=== PATIENT | female | born 1950 | race Caucasian/White ===

== ENCOUNTER 2025-01-16 11:28 | Inpatient (IN) | payer MEDICARE, SELFPAY ==
[2025-01-16] VITALS (8 sets, daily range): BP systolic 106–128; BP diastolic 52–83; PULSE 68–147; RESP 11–22; TEMP 36.4–36.8; O2SAT 95–98; BMI 28.5
--- NOTE | 2025-01-16 | ECG_ITS ---
Test Reason : SINUS TACH Blood Pressure : */* mmHG Vent. Rate : 81 BPM Atrial Rate : 81 BPM P-R Int : 178 ms QRS Dur : 142 ms QT Int : 438 ms P-R-T Axes : 71 27 162 degrees QTcB Int : 508 ms Normal sinus rhythm Left bundle branch block Abnormal ECG When compared with ECG of 16-Jan-2025 11:42, Sinus rhythm has replaced Wide QRS tachycardia Vent. rate has decreased by 65 bpm Referred By: Chad Casas Electronically Signed By: JAKOB OLGUIN
--- NOTE | ~2025-01-16 | XR_ITS ---
CLINICAL HISTORY: Palpitation 1 view chest x-ray Comparison: None Findings: Mild diffuse reticulonodular pulmonary opacity. Normal size heart. No acute fracture. IMPRESSION: Mild edema versus atypical pneumonia. This document has been electronically signed by: Mireya Roger MD on 01/16/2025 15:47:21
--- NOTE | 2025-01-16 11:34 | ED_ITS ---
HPI - General Adult General Chief complaint: Arrhythmia/Palpitations Stated complaint: High HR ; 143 @ approx 1030am Time Seen by Provider: 01/16/25 11:59 Related Data Allergies Allergy/AdvReac Type Severity Reaction Status Date / Time No Known Allergies Allergy Verified 01/16/25 11:39 [facility] Past Medical History Medical History (Updated 01/16/25 @ 15:24 by Chad Casas MD) Hyperlipidemia, unspecified Essential hypertension Diabetes mellitus Family History Family History (Updated 01/16/25 @ 14:25 by Daniel Tinoco MD) Father Heart valve replaced Social History Social History Smoked in Last 30 Days: No Use of substances other than those prescribed or required for medical reasons: No Advance Directives: No Advance Directives Information Provided: No Do you have a plan to hurt others: No Plan Physical Exam ED Vital Signs: Vital Signs - 24 hr 01/16/25 11:34 01/16/25 12:03 01/16/25 12:23 Temperature 97.9 F Pulse Rate 147 H 145 H 81 Respiratory Rate 18 22 H Blood Pressure 106/67 128/83 113/67 Pulse Oximetry 97 98 Oxygen Delivery Method Room Air Room Air 01/16/25 15:11 01/16/25 15:15 01/16/25 18:42 Temperature 98.2 F Pulse Rate 74 80 68 Respiratory Rate 21 H 11 L Blood Pressure 113/70 113/70 115/70 Pulse Oximetry 98 95 Oxygen Delivery Method Room Air Room Air 01/16/25 19:42 Temperature 98.1 F Pulse Rate 69 Respiratory Rate 15 Blood Pressure 110/52 L Pulse Oximetry 95 Oxygen Delivery Method Room Air BMI result Body Mass Index 28.5 Course Course Course Narrative: RME performed by Afshan Vega PA-C. Patient is a 75 year old assigned female at presenting to the emergency department with concerns of a high pulse rate and neck pain. Patient states after shoveling some ice a week ago she has had neck pain and she has recently felt like she has an elevated pulse. Detailed physical exam and review of systems are deferred to the primary teaching assistant. EKG and labs ordered. Patient placed back in the waiting room pending room availability and results. Reevaluation(s) Reevaluation #1: The case was discussed with Dr. Tinoco who advised to get transthoracic echo, serial cardiac enzymes, keep cardiac monitoring, and he will consult the patient in the ED. Time: 13:49 Medications Administered Discontinued Medications Generic Name Dose Route Start Last Admin Trade Name Parker PRN Reason Stop Dose Admin Aspirin 324 mg 01/16/25 14:20 01/16/25 15:12 Aspirin 81 Mg Tab.Chew PO 01/16/25 14:21 324 mg ONCE ONE Administration Enoxaparin Sodium 70 mg 01/16/25 14:32 01/16/25 15:11 Enoxaparin Sodium 80 Mg/0.8 Ml Syringe 1 mg/kg (70 mg) 01/16/25 14:33 70 mg SUBCUT Administration ONCE ONE Sodium Chloride 1,000 mls @ 999 mls/hr 01/16/25 12:53 01/16/25 14:05 Ns IV 01/16/25 13:53 Infused .Q1H1M ONE Infusion Metoprolol Tartrate 25 mg 01/16/25 14:29 01/16/25 15:11 Metoprolol Tartrate 25 Mg Tablet PO 01/16/25 14:30 25 mg ONCE ONE Administration Protocol Medical Decision Making Differential Diagnosis Differential Diagnoses: The differential diagnosis associated with the presentation includes (SVT, rapid AFib, new onset LBBB, wide complex dysrhythmia, electrolyte derangement, severe anemia, ACS, CHF.) Admission/Observation Consideration of admission/observation: Escalation of care including admission/observation considered Consult Healthcare Provider Management of the patient was discussed with: Ripening Room Hand (Dr. Tinoco) Lab Data MDM Lab Attestation statement: I reviewed the patient's lab results. 01/16/25 16:17 01/16/25 11:51 Labs: Lab Results 01/16/25 01/16/25 Range/Units 11:51 16:17 WBC 8.6 7.6 (4.8-10.8) X10*3/uL RBC 4.76 4.54 (4.20-5.50) X10*6/uL Hgb 13.9 13.0 (12.0-16.0) g/dl Hct 42.5 40.5 (37.0-47.0) % MCV 89.3 89.2 (80.0-98.0) fL MCH 29.2 28.6 (27.0-33.0) pg MCHC 32.7 32.1 (31.0-35.0) g/dl RDW 13.8 13.9 (11.0-16.0) % Plt Count 281 244 (160-400) X10*3/uL MPV 10.2 10.5 (9.4-12.3) fL Immature Gran % (Auto) 0.3 (0.0-0.4) % Neut % (Auto) 70.3 (45-73) % Lymph % (Auto) 20.6 (20-40) % [place] % (Auto) 8.2 (2-11) % Eos % (Auto) 0.3 (0-4) % Baso % (Auto) 0.3 (0-2) % Lymph # (Auto) 1.8 (1.2-4.9) X10*3/uL [place] # (Auto) 0.7 (0.1-1.2) X10*3/uL Eos # (Auto) 0.0 (0.0-0.4) X10*3/uL Baso # (Auto) 0.0 (0.0-0.2) X10*3/uL Abs Immat Gran (auto) 0.03 (0.00-0.03) X10*3/uL Absolute Neuts (auto) 6.1 (2.0-8.3) x10*3/uL Absolute Nucleated RBC 0.000 0.000 (0.0-0.012) X10*3/uL Nucleated RBC % (auto) 0.0 0.0 (0.0-0.2) /100WBC PT 15.2 H (10.9-12.4) SEC INR 1.3 H (0.9-1.1) APTT 33.0 (26.0-36.8) SEC Sodium 138 (135-145) mmol/L Potassium 4.0 (3.3-5.1) mmol/L Chloride 106 (96-108) mmol/L Carbon Dioxide 20 L (22-29) mmol/L Anion Gap 16 (12-20) BUN 15 (9-16) mg/dL Creatinine 0.83 (0.5-1.4) mg/dL Estim Creat Clear Calc 53.0 Estimated GFR > 60 Random Glucose 189 H (60-115) mg/dL Calcium 9.8 (8.4-10.2) mg/dL Magnesium 1.9 (1.6-2.6) mg/dL Total Bilirubin 0.7 (0.0-1.0) mg/dL AST 29 (5-31) U/L ALT 32 H (0-31) U/L Alkaline Phosphatase 52 (39-117) U/L Troponin I High Sens 26.1 H 188.6 H* D (<3.5-17.0) ng/L Total Protein 7.5 (6.5-8.0) g/dL Albumin 4.1 (3.5-5.0) g/dL Influenza Type A (PCR) NEGATIVE (Negative) Influenza Type B (PCR) NEGATIVE (Negative) RSV RNA Qual (PCR) NEGATIVE (Negative) SARS-CoV-2 RNA (RT-PCR) NEGATIVE (Negative) Independent Interpretation I performed an independent interpretation of an: Plain X-Ray (Chest:Mild diffuse reticulonodular pulmonary opacity. Normal size heart. No acute fracture.) Radiology Impression Discussion of test interpretation with radiology: I have reviewed the radiologist's reading. Critical Care Time Critical Care Time Critical Care Time: Yes Total Critical Care Time: 40 Attestation: The patient was critically ill with a high probability of imminent or life- threatening deterioration. I spent greater than 30 minutes of discontinuous time evaluating the patient, delivering critical care at the bedside, discussing evaluating data with consultants. Critical care time does not include time spent performing separately billable procedures or teaching. Time spent performing critical care was 40 minutes. Discharge Plan Discharge Clinical Impression: Atrial flutter with rapid ventricular response, New onset left bundle branch block (LBBB) Patient Disposition: [facility] Transfer Details: [facility]. Print Language: Malawian
--- NOTE | 2025-01-16 11:36 | ECG_ITS ---
Test Reason : TACHYCARDIA Blood Pressure : */* mmHG Vent. Rate : 146 BPM Atrial Rate : * BPM P-R Int : * ms QRS Dur : 134 ms QT Int : 340 ms P-R-T Axes : * -7 160 degrees QTcB Int : 529 ms Atrial flutter Non-specific intra-ventricular conduction block Abnormal ECG No previous ECGs available Referred By: Afshan Vega Electronically Signed By: JAKOB OLGUIN
[2025-01-16 11:57] LABS: MANUAL DIFF FLAG NO
[2025-01-16 12:08] LABS: Basophils Percent Auto 0.3 % (0-2); Eosinophils Percent Auto 0.3 % (0-4); Hematocrit 42.5 % (37.0-47.0); Hemoglobin 13.9 g/dl (12.0-16.0); Imm Gran Abs Auto 0.03 X10*3/uL (0.00-0.03); Imm Gran Pct Auto 0.3 % (0.0-0.4); Lymphocytes Absolute Auto 1.8 X10*3/uL (1.2-4.9); Lymphocytes Percent Auto 20.6 % (20-40); Mean Corpuscular HGB Conc 32.7 g/dl (31.0-35.0); Mean Corpuscular Hemoglobin 29.2 pg (27.0-33.0); Mean Corpuscular Volume 89.3 fL (80.0-98.0); Mean Platelet Volume 10.2 fL (9.4-12.3); Monocytes Absolute Auto 0.7 X10*3/uL (0.1-1.2); Monocytes Percent Auto 8.2 % (2-11); Neutrophils Absolute Auto 6.1 x10*3/uL (2.0-8.3); Neutrophils Percent Auto 70.3 % (45-73); Platelet Count 281 X10*3/uL (160-400); Red Blood Count 4.76 X10*6/uL (4.20-5.50); Red Cell Distribution Width 13.8 % (11.0-16.0); White Blood Count 8.6 X10*3/uL (4.8-10.8)
[2025-01-16 12:11] LABS: Alanine Aminotransferase 32 U/L (0-31); Albumin Level 4.1 g/dL (3.5-5.0); Alkaline Phosphatase 52 U/L (39-117); Anion Gap 16 (12-20); Aspartate Amino Transferase 29 U/L (5-31); Bilirubin Total 0.7 mg/dL (0.0-1.0); Blood Urea Nitrogen 15 mg/dL (9-16); Calcium 9.8 mg/dL (8.4-10.2); Carbon Dioxide 20 mmol/L (22-29); Chloride 106 mmol/L (96-108); Estimated Glomerular Filt Rate > 60; Glucose Random 189 mg/dL (60-115); Magnesium 1.9 mg/dL (1.6-2.6); Sodium 138 mmol/L (135-145); Total Protein 7.5 g/dL (6.5-8.0)
--- NOTE | 2025-01-16 12:17 | ED.ARRPALP ---
HPI - Arrhythmia/Palpitations General Chief Complaint: Arrhythmia/Palpitations Stated Complaint: High HR ; 143 @ approx 1030am Time Seen by Provider: 01/16/25 11:59 Source: patient and family () Mode of arrival: ambulatory Limitations: no limitations History of Present Illness ED Provider: DR. Casas HPI narrative: 75-year-old female with history of hypertension, chronic neck pain x1 week after shoveling snow presented today for high heart rate detected on her 's home machine patient do not feel palpitation, no chest pain, no shortness of breath, no dizziness, patient otherwise feels normal except for neck pain after shoveling snow last week. No CP, no SOB, no known cardiac condition, no abdominal pain. Related Data Allergies Allergy/AdvReac Type Severity Reaction Status Date / Time No Known Allergies Allergy Verified 01/16/25 11:39 Review of Systems Review of Systems: All other systems are reviewed and are negative Constitutional: Reports as per HPI and Reports no additional constitutional complaints Eyes: Reports as per HPI and Reports no additional eye complaints Reports system reviewed and no additional complaints, except as documented Cardiovascular: Reports as per HPI and Reports no additional cardiovascular complaints Respiratory: Reports as per HPI and Reports no additional respiratory complaints Gastrointestinal: Reports as per HPI and Reports no additional gastrointestinal complaints Genitourinary: Reports no additional female genitourinary complaints Musculoskeletal: Reports no additional musculoskeletal complaints Skin/Breast: Reports system reviewed and no additional complaints, except as docu Psychiatric: Reports no additional psychiatric complaints Endocrine: Reports no additional endocrine complaints Hematologic/Lymphatic: Reports no additional hematologic/lymphatic complaints Allergic/Immunologic: Reports no additional allergic/immunologic complaints Reports system reviewed and no additional complaints, except as documented and Reports Abnormal speech present [facility] Past Medical History Medical History (Updated 01/16/25 @ 15:24 by Chad Casas MD) Hyperlipidemia, unspecified Essential hypertension Diabetes mellitus Family History Family History (Updated 01/16/25 @ 14:25 by Dnaiel Tinoco MD) Father Heart valve replaced Physical Exam Vital Signs: Vital Signs: Last Vital Signs Temp 97.9 F 01/16/25 11:34 Pulse 80 01/16/25 15:15 Resp 21 H 01/16/25 15:15 BP 113/70 01/16/25 15:15 Pulse Ox 98 01/16/25 15:15 O2 Del Method Room Air 01/16/25 15:15 BMI result Body Mass Index 28.5 Vital signs have been reviewed and appear to be correct. Blood pressure elevated. Heart rate elevated, Respiratory rate normal. Temperature normal. Oxygen saturation normal. Appearance: Alert. Oriented X3. No acute distress. Head: Normal external exam. Normocephalic. Atraumatic. No Arcos signs noted. No raccoon eyes noted Eyes: PERRLA. EOMI. Conjunctiva and sclera normal. Eyelids normal. ENT: TM's Normal. Pharynx normal. Uvula midline. Moist mucous membranes. No trismus noted. No drooling noted. No muffled voice noted. Neck: Normal inspection. Neck supple. FROM. No adenopathy. Thyroid Normal. No meningeal signs. No neck mass noted. CVS: Normal heart rate and rhythm. Heart sound normal. No murmurs noted. Pulses normal throughout. Respiratory: No respiratory distress. Painless inspiration. Breath sounds normal. No wheezes/rales/rhonchi noted. Chest nontender. No accessory muscle usage noted or decreased air movement noted. Abdomen: Soft and nontender. Bowel sounds normal in all 4 quadrants. No distention noted. No organomegaly noted. No visible injury noted. Back: No CVA tenderness. Full range of motion noted. Skin: Skin warm and dry. Normal skin color. Normal skin turgor. No rashes/lesions/lacerations noted. Extremities: No lower extremity edema. Extremities exhibit normal range of motion. Extremities nontender. Neuro: Oriented X 3. Cranial nerve exam: II-XII are grossly intact No motor deficit. No sensory deficit. Reflexes normal. Course Reevaluation(s) Reevaluation #1: New onset LBBB, a flutter with rapid ventricular response that is spontaneously broke into sinus rhythm with LBBB, old EKG was obtained from [facility] LBBB is new, with elevated troponin, patient declined chest pain, case discussed with Dr. Tinoco who evaluated the patient at the bedside, transthoracic echocardiogram preliminary read read by Dr. Tinoco showing low ejection fraction. Will start the patient on Lovenox 1 mg/kg b.i.d. and aspirin. Dr. Tinoco discussed with the [facility] team patient was accepted for transfer await for bed assignment from [facility]. As per Dr. Tinoco he discussed it with Dr. Wang (dyehouse worker), and Dr. Morton from the hospitalist service at [facility]. Time: 15:25 Medications Administered Discontinued Medications Generic Name Dose Route Start Last Admin Trade Name Parker PRN Reason Stop Dose Admin Aspirin 324 mg 01/16/25 14:20 01/16/25 15:12 Aspirin 81 Mg Tab.Chew PO 01/16/25 14:21 324 mg ONCE ONE Administration Enoxaparin Sodium 70 mg 01/16/25 14:32 01/16/25 15:11 Enoxaparin Sodium 80 Mg/0.8 Ml Syringe 1 mg/kg (70 mg) 01/16/25 14:33 70 mg SUBCUT Administration ONCE ONE Sodium Chloride 1,000 mls @ 999 mls/hr 01/16/25 12:53 01/16/25 14:05 Ns IV 01/16/25 13:53 Infused .Q1H1M ONE Infusion Metoprolol Tartrate 25 mg 01/16/25 14:29 01/16/25 15:11 Metoprolol Tartrate 25 Mg Tablet PO 01/16/25 14:30 25 mg ONCE ONE Administration Protocol Medical Decision Making Differential Diagnosis Differential Diagnoses: The differential diagnosis associated with the presentation includes (V-tach, rapid AFib with LBBB, ACS, pneumonia, pneumothorax, pleural effusion, electrolyte derangement, severe anemia.) Admission/Observation Consideration of admission/observation: Escalation of care including admission/observation considered Consult Healthcare Provider Management of the patient was discussed with: Automatic Transmission Mechanic (Dr. Tinoco) Lab Data MDM Lab Attestation statement: I reviewed the patient's lab results. 01/16/25 11:51 01/16/25 11:51 Labs: Lab Results 01/16/25 Range/Units 11:51 WBC 8.6 (4.8-10.8) X10*3/uL RBC 4.76 (4.20-5.50) X10*6/uL Hgb 13.9 (12.0-16.0) g/dl Hct 42.5 (37.0-47.0) % MCV 89.3 (80.0-98.0) fL MCH 29.2 (27.0-33.0) pg MCHC 32.7 (31.0-35.0) g/dl RDW 13.8 (11.0-16.0) % Plt Count 281 (160-400) X10*3/uL MPV 10.2 (9.4-12.3) fL Immature Gran % (Auto) 0.3 (0.0-0.4) % Neut % (Auto) 70.3 (45-73) % Lymph % (Auto) 20.6 (20-40) % [place] % (Auto) 8.2 (2-11) % Eos % (Auto) 0.3 (0-4) % Baso % (Auto) 0.3 (0-2) % Lymph # (Auto) 1.8 (1.2-4.9) X10*3/uL [place] # (Auto) 0.7 (0.1-1.2) X10*3/uL Eos # (Auto) 0.0 (0.0-0.4) X10*3/uL Baso # (Auto) 0.0 (0.0-0.2) X10*3/uL Abs Immat Gran (auto) 0.03 (0.00-0.03) X10*3/uL Absolute Neuts (auto) 6.1 (2.0-8.3) x10*3/uL Absolute Nucleated RBC 0.000 (0.0-0.012) X10*3/uL Nucleated RBC % (auto) 0.0 (0.0-0.2) /100WBC Sodium 138 (135-145) mmol/L Potassium 4.0 (3.3-5.1) mmol/L Chloride 106 (96-108) mmol/L Carbon Dioxide 20 L (22-29) mmol/L Anion Gap 16 (12-20) BUN 15 (9-16) mg/dL Creatinine 0.83 (0.5-1.4) mg/dL Estim Creat Clear Calc 53.0 Estimated GFR > 60 Random Glucose 189 H (60-115) mg/dL Calcium 9.8 (8.4-10.2) mg/dL Magnesium 1.9 (1.6-2.6) mg/dL Total Bilirubin 0.7 (0.0-1.0) mg/dL AST 29 (5-31) U/L ALT 32 H (0-31) U/L Alkaline Phosphatase 52 (39-117) U/L Troponin I High Sens 26.1 H (<3.5-17.0) ng/L Total Protein 7.5 (6.5-8.0) g/dL Albumin 4.1 (3.5-5.0) g/dL Influenza Type A (PCR) NEGATIVE (Negative) Influenza Type B (PCR) NEGATIVE (Negative) RSV RNA Qual (PCR) NEGATIVE (Negative) SARS-CoV-2 RNA (RT-PCR) NEGATIVE (Negative) Independent Interpretation I performed an independent interpretation of an: EKG (Wide complex tachycardia at 144) and Plain X-Ray (Chest: No acute intrathoracic pathology.) Radiology Impression Discussion of test interpretation with radiology: I have reviewed the radiologist's reading. Discharge Plan Discharge Clinical Impression: Atrial flutter with rapid ventricular response, New onset left bundle branch block (LBBB) Patient Disposition: [facility] Transfer Details: [facility]. Print Language: Frisian
[2025-01-16 12:18] LABS: Troponin-I High Sensitivity 26.1 ng/L (<3.5-17.0)
[2025-01-16 12:41] LABS: Influenza A PCR NEGATIVE (Negative); Influenza B PCR NEGATIVE (Negative); Resp Syncy Virus RNA Qual PCR NEGATIVE (Negative); SARS COV2 PCR INHOUSE NEGATIVE (Negative)
[2025-01-16] MEDS: 0.9 % Sodium Chloride 1,000 ML 999 ML IV (13:03)
--- NOTE | 2025-01-16 13:17 | CA_ITS ---
Transthoracic Echocardiogram Patient (Last, First, Middle): Flor Guzman, Gender: Female Date of : 1950 Age: 75 Procedure Date: 01/16/2025 Procedure Type: Transthoracic Echocardiogram Location: ER Height: 157.48 cm Weight: 70.31 kg BSA: 1.72 m2 Heart Rate: bpm BP: 113 / 67 mmHg General Car Yard Supervisor: ROEL Referring MD: Chad Casas MD Symptoms: new onset LBBB Study Quality: Adequate with contrast Conclusions: - The left ventricular systolic function is severely decreased. The visually estimated ejection fraction is between 10-15%. - Evidence suggests grade II (moderate) diastolic dysfunction. - There is moderate calcification of the aortic valve. - There is severe mitral annular calcification. There is mild mitral valve regurgitation. - There is mild to moderate tricuspid valve regurgitation. - Mild pulmonary hypertension is present. Findings Procedure Information Contrast agent, definity, is being given per protocol without apparent complications. Left Ventricle Normal left ventricular cavity size. The left ventricular systolic function is severely decreased. The visually estimated ejection fraction is between 10-15%. There is severe global hypokinesis. There is paradoxical septal motion consistent with a left bundle branch block. Evidence suggests grade II (moderate) diastolic dysfunction. Right Ventricle Normal right ventricular cavity size. There is moderately decreased right ventricular systolic function. Atria The left atrium is moderately dilated. The right atrium is normal in size. Aortic Valve There is moderate calcification of the aortic valve. There is no aortic valve stenosis. There is no aortic valve regurgitation. Mitral Valve There is severe mitral annular calcification. There is mild mitral valve regurgitation. There is no mitral valve stenosis. Pulmonic Valve The pulmonic valve is likely normal. Tricuspid Valve There is mild to moderate tricuspid valve regurgitation. Mild pulmonary hypertension is present. Great Vessels The asc aorta is normal in size. Venous The inferior vena cava is dilated and collapses less than 50% with inspiration. Pericardium/Pleural There is no evidence of pericardial effusion. Prior Study Comparison No prior study available for comparison. Measurements 2D Linear Measurements IVSd: 0.82 0.6-0.9/0.6-1.0 cm LVIDd: 5.04 3.9-5.3/4.2-5.9 cm LVIDd Index: 2.93 2.4-3.2/2.2-3.1 cm/m2 LVIDs: 4.19 2.0-3.6 cm LVPWd: 0.84 0.7-1.1 cm LA Diam: 4.40 2.7-3.8/3.0-4.0 cm LAIDs Index: 2.56 1.5-2.3 cm/m2 LV Mass: 180.35 67-162/88-224 g LV Mass Index: 104.85 43-95/49-115 g/m2 LVOT Diam: 1.80 3.0+(-)1.3 cm 2D Systolic Function EF 4C: 15.60 >55% EF 2C: 23.60 >55% EF BiP: 19.90 >55% Mitral Valve MV VTI: 0.24 MV Pk Alfred: 1.28 MV Mn Alfred: 0.66 MV Pk Grad: 7.00 MV Mn Grad: 2.00 MV Pk E: 1.19 MV PK A: 0.85 MV Decel Time: 137.00 E/A: 1.40 E'Lateral: 3.49 E'Medial: 2.19 E/E' Med: 54.30 E/E' Lat: 34.10 PHT: 40.00 MVA PHT: 5.50 MVA Continuity: 1.21 Decel Price: 8.72 Aortic Valve AoV Pk Alfred: 1.15 AoV Mn Alfred: 0.84 AoV VTI: 0.23 AoV Pk Grad: 5.00 Aov Mn Grad: 3.00 RHONDA Cont.VTI: 1.30 LVOT LVOT Pk Alfred: 0.63 LVOT Mn Alfred: 0.44 LVOT VTI: 0.12 LVOT Pk Grad: 2.00 LVOT Mn Grad: 1.00 LVOT Diam: 1.80 LVOT Area: 2.54 Diastolic Function MV Pk E: 1.19 MV Pk A: 0.85 E/A: 1.40 E'Medial: 2.19 E/E' Med: 54.30 E' Laterial: 3.49 E/E' Lat: 34.10 Right Ventricle TAPSE (mm): 12.60 TVS' Alfred: 4.95 Tricuspid Valve TR Pk Alfred: 2.69 TR Pk Grad: 29.00 RA Press: 15.00 RVSP: 44.00 Great Vessels Aorta Sinus of Valsalva: 2.94 2.0-3.[address] [place]: 2.17 1.7-3.4 cm Ao Asc: 3.30 2.1-3.4 cm Updated in Other Vendor System with Status of Final Daniel Tinoco MD electronically signed on 01/16/2025 3:17:24 PM with status of Final
--- NOTE | 2025-01-16 13:41 | PC.NURSE ---
Upon arrival pt HR sinus tach 140s. at bedside with this RN. Pt denies cp/sob/palpitations, endorsing left neck/shoulder pain, recently shoveled snow outside and then started having pain. During IV insertion pt HR decreased to 70s-80s normal sinus. MD Casas notified, repeat EKG ordered. 20g IV placed left AC. Call jackson within reach, all needs met at this time.
--- NOTE | 2025-01-16 14:23 | PM.CNCAR ---
History of Present Illness History of Present Illness Date of Service: 01/16/25 Chief complaint: High HR ; 143 @ approx 1030am Narrative: She has neck pain This is a cardiology consultation regarding tachycardia. Patient states that she does not have any known cardiac issues including coronary disease or myocardial infarction or cardiomyopathy. She states that she checked her own heart rate on 's home machine and that showed a rapid rates which led to the ER visit. Patient herself is denying any clear-cut symptoms like angina or shortness of breath. Apparently few weeks back when she had a doctor's appointment she was told to have normal vital signs. Otherwise, no clear-cut cardiac symptoms. Initially, thought to be in wide complex tachycardia. Then she spontaneously converted to sinus rhythm. Currently, she feels okay from cardiac. Main complaint is rather neck pain. Review of Systems Review of Systems: Yes all other systems are reviewed and are negative Constitutional: Constitutional: Reports as per HPI and Reports no additional constitutional complaints Eyes: Eyes: Reports as per HPI and Denies no additional eye complaints ENT: Denies system reviewed and no additional complaints, except as documented and Reports as per HPI Cardiovascular: Cardiovascular: Reports as per HPI, Reports no additional cardiovascular complaints, Denies acrocyanosis, Denies cool extremities, Denies chest pain, Denies leg edema, Denies lightheadedness, Denies palpitations and Denies dyspnea Respiratory: Respiratory: Reports as per HPI, Denies no additional respiratory complaints and Denies dyspnea Gastrointestinal: Gastrointestinal: Reports as per HPI and Denies no additional gastrointestinal complaints Genitourinary: Genitourinary: Reports as per HPI Musculoskeletal: Musculoskeletal: Reports no additional musculoskeletal complaints and Reports as per HPI Integumentary/Breasts: Skin/Breast: Reports system reviewed and no additional complaints, except as docu Neurologic: Reports system reviewed and no additional complaints, except as documented and Reports as per HPI Psychiatric: Psychiatric: Reports no additional psychiatric complaints and Reports as per HPI Endocrine: Endocrine: Reports no additional endocrine complaints, Reports as per HPI and Denies palpitations Hematologic/Lymphatic: Hematologic/Lymphatic: Reports no additional hematologic/lymphatic complaints and Reports as per HPI Allergic/Immunologic: Allergic/Immunologic: Reports no additional allergic/immunologic complaints and Reports as per HPI [facility] Past Medical History Medical History (Updated 01/16/25 @ 14:27 by Daniel Tinoco MD) Hyperlipidemia, unspecified Essential hypertension Diabetes mellitus Family History Family History (Updated 01/16/25 @ 14:25 by Daniel Tinoco MD) Father Heart valve replaced Social History Social History Advance Directives: No Advance Directives Information Provided: No Do you have a plan to hurt others: No Plan Meds Allergies Allergy/AdvReac Type Severity Reaction Status Date / Time No Known Allergies Allergy Verified 01/16/25 11:39 Physical Exam Vital Signs: Vital Signs: Last Vital Signs Temp 97.9 F 01/16/25 11:34 Pulse 81 01/16/25 12:23 Resp 22 H 01/16/25 12:03 BP 113/67 01/16/25 12:23 Pulse Ox 98 01/16/25 12:03 O2 Del Method Room Air 01/16/25 12:03 BMI result Body Mass Index 28.5 Const: General: comfortable and no acute distress Orientation/consciousness: patient oriented x3 HEENT: Other: Unremarkable Head: Yes normal to inspection Neck: Neck: Yes normal visual inspection Chest: Chest palpation & inspection: normal inspection of the chest Resp: Auscultation: clear to auscultation bilaterally Cardio: Palpation: normal PMI Heart sounds: S1 normal heart sound present, S2 normal heart sound present, no gallops, no murmurs and no rubs GI: Palpation (GI): Soft to palpation Back/Spine/Pelvis: Other: unremarkable Skin: General skin exam: no rashes or lesions noted Neuro: General: patient oriented x3 Extrem: General: Yes normal to inspection Psych: Mental Status: mental status grossly normal Objective Labs and Meds 01/16/25 11:51 01/16/25 11:51 Lab results: Laboratory Results - last 24 hr 01/16/25 11:51 WBC 8.6 RBC 4.76 Hgb 13.9 Hct 42.5 MCV 89.3 MCH 29.2 MCHC 32.7 RDW 13.8 Plt Count 281 MPV 10.2 Immature Gran % (Auto) 0.3 Neut % (Auto) 70.3 Lymph % (Auto) 20.6 [place] % (Auto) 8.2 Eos % (Auto) 0.3 Baso % (Auto) 0.3 Lymph # (Auto) 1.8 [place] # (Auto) 0.7 Eos # (Auto) 0.0 Baso # (Auto) 0.0 Abs Immat Gran (auto) 0.03 Absolute Neuts (auto) 6.1 Absolute Nucleated RBC 0.000 Nucleated RBC % (auto) 0.0 Sodium 138 Potassium 4.0 Chloride 106 Carbon Dioxide 20 L Anion Gap 16 BUN 15 Creatinine 0.83 Estim Creat Clear Calc 53.0 Estimated GFR > 60 Random Glucose 189 H Calcium 9.8 Magnesium 1.9 Total Bilirubin 0.7 AST 29 ALT 32 H Alkaline Phosphatase 52 Troponin I High Sens 26.1 H Total Protein 7.5 Albumin 4.1 Influenza Type A (PCR) NEGATIVE Influenza Type B (PCR) NEGATIVE RSV RNA Qual (PCR) NEGATIVE SARS-CoV-2 RNA (RT-PCR) NEGATIVE ECG Interpretation: In the initial EKG, suspect atrial flutter with rapid rate at 146/Min. Left bundle-branch block pattern. In the repeat EKG, sinus rhythm with left bundle-branch block pattern. In a prior EKG sent to me by [facility], no clear evidence of left bundle-branch block. Assessment and Plan (1) Atrial flutter with rapid ventricular response: Status: Acute (2) Left bundle branch block: Status: Acute (3) Cardiomyopathy: Status: Acute Plan In the bedside echocardiogram, markedly diminished LVEF. Full studies pending. Suspect EKG initially had atrial flutter with rapid rate but then sinus rhythm. Left bundle-branch block seems to be new finding. Unknown duration. No overt cardiac symptoms. Initial troponin is borderline high at 26.1. Next set is pending. Once echocardiogram is completed, we will review in detail. Otherwise, keep her on therapeutic Lovenox or IV heparin. We will need to reconcile all her medications and see what she is taking. Probably low-dose beta-blockers as blood pressure is also lowish. Aspirin, statins. Discussed about diagnostic catheterization and they are agreeable. We will requested bed at [facility] but there may be a delay due to availability. Discussed with significant other. Discussed with Dr. Casas. Procedures Date of Service Date of Service: 01/16/25
[2025-01-16] MEDS: Enoxaparin Sodium 80 MG/0.8 ML SYRINGE 70 MG SUBCUT (15:11)
[2025-01-16] MEDS: Metoprolol Tartrate 25 MG TABLET PO (15:11)
[2025-01-16] MEDS: Aspirin 81 MG TAB.CHEW 324 MG PO (15:12)
--- NOTE | 2025-01-16 15:43 | MHC.EDTECH ---
attempted to draw labs pt wanted it to be taken from the iv, I told her i couldn't. she prefers for me not to do the hand it hurts too much also not the arm either she stated I'm a difficult stick and i know my veins . Rn will be notified of Pt request.
[2025-01-16 16:53] LABS: Troponin-I High Sensitivity 188.6 ng/L (<3.5-17.0)
[2025-01-16 16:56] LABS: Hematocrit 40.5 % (37.0-47.0); Mean Corpuscular HGB Conc 32.1 g/dl (31.0-35.0); Mean Corpuscular Hemoglobin 28.6 pg (27.0-33.0); Mean Corpuscular Volume 89.2 fL (80.0-98.0); Mean Platelet Volume 10.5 fL (9.4-12.3); Platelet Count 244 X10*3/uL (160-400); Red Blood Count 4.54 X10*6/uL (4.20-5.50); Red Cell Distribution Width 13.9 % (11.0-16.0); White Blood Count 7.6 X10*3/uL (4.8-10.8)
[2025-01-16 17:05] LABS: INTERNATIONAL NORM RATIO 1.3 (0.9-1.1); Prothrombin Time 15.2 SEC (10.9-12.4)
[2025-01-17] VITALS (8 sets, daily range): BP systolic 105–123; BP diastolic 55–76; PULSE 64–142; RESP 15–18; TEMP 36.5–37.1; O2SAT 95–97
--- NOTE | 2025-01-17 05:50 | ECG_ITS ---
Test Reason : TACKY Blood Pressure : */* mmHG Vent. Rate : 77 BPM Atrial Rate : 77 BPM P-R Int : 176 ms QRS Dur : 142 ms QT Int : 424 ms P-R-T Axes : 74 52 181 degrees QTcB Int : 479 ms Sinus rhythm with occasional Premature ventricular complexes Left bundle branch block Abnormal ECG When compared with ECG of 16-Jan-2025 12:26, Premature ventricular complexes are now Present Referred By: Chad Casas Electronically Signed By: JAKOB OLGUIN
--- NOTE | 2025-01-17 05:58 | PC.NURSE ---
Pt was sleeping at the bedside when this health science writer was told by the tech that pts HR was in the 140's. Pt was awaken, aox4, denies chest pain, sob, N/V. VSS besides sinus tach with the HR in the 140's. By the time EKG was obtained pts HR normalized to the 80's. made aware and placed order in the MAR for metoprolol. Monitoring is ongoing. sales secretary to call [facility] for an update on a bed. sales secretary states bed may be available at [facility] for Saturday.
[2025-01-17] MEDS: Metoprolol Tartrate 25 MG TABLET PO (06:05)
[2025-01-17] MEDS: Enoxaparin Sodium 80 MG/0.8 ML SYRINGE 70 MG SUBCUT ×2 (07:42→21:33)
--- NOTE | 2025-01-17 07:51 | PC.NURSE ---
Med rec completed with patient
--- NOTE | 2025-01-17 08:10 | PHA.MEDREC ---
Pharmacy Consult ? Medication Reconciliation Pharmacy has REVIEWED the medication reconciliation.
[2025-01-17] MEDS: Empagliflozin 25 MG TABLET PO (09:14)
[2025-01-17] MEDS: glipiZIDE XL 10 MG TAB.ER.24 20 MG PO (09:14)
[2025-01-17] MEDS: Bisoprolol Fumarate 5 MG TABLET PO (09:14)
[2025-01-17] MEDS: PARoxetine HCL 20 MG TABLET PO (09:14)
[2025-01-17 09:25] LABS: Hematocrit 40.3 % (37.0-47.0); Hemoglobin 13.3 g/dl (12.0-16.0); Mean Corpuscular Hemoglobin 29.3 pg (27.0-33.0); Mean Corpuscular Volume 88.8 fL (80.0-98.0); Mean Platelet Volume 10.1 fL (9.4-12.3); Platelet Count 229 X10*3/uL (160-400); Red Blood Count 4.54 X10*6/uL (4.20-5.50); Red Cell Distribution Width 13.9 % (11.0-16.0); White Blood Count 7.1 X10*3/uL (4.8-10.8)
--- NOTE | 2025-01-17 12:42 | MHC.EDTECH ---
pt stated she is hungry, she requested cheesburger for lunch from cafeteria, I explained to pt that I am not sure if this is good choice if she is on cardiac diet, pt stated: screw it
--- NOTE | 2025-01-17 14:31 | MHC.EDTECH ---
pt refused blood draw- blue top, RN notified.
[2025-01-17 14:59] LABS: INTERNATIONAL NORM RATIO 1.4 (0.9-1.1); Prothrombin Time 16.1 SEC (10.9-12.4)
[2025-01-17] MEDS: metFORMIN HCl ER 500 MG TAB.ER.24H 1000 MG PO (21:33)
[2025-01-17] MEDS: Atorvastatin Calcium 40 MG TABLET PO (21:52)
[2025-01-17] MEDS: Melatonin 3 MG TABLET 6 MG PO (21:52)
[2025-01-18 02:53] VITALS: BP 122/76; PULSE 75; RESP 14; TEMP 36.6; O2SAT 96
[2025-01-18 05:50] VITALS: BP 133/78; PULSE 84; RESP 16; TEMP 36.6; O2SAT 96
--- NOTE | 2025-01-18 08:16 | PC.NURSE ---
call placed to [facility] for any bed update, no bed available at this time. awaiting bed assignment for transfer
--- NOTE | 2025-01-18 09:39 | PC.NURSE ---
repeat EKG and lab work being obtained, plan for patient to be admitted. hospitalist at bedside for admission. awaiting medications from pharmacy. continues to deny chest pain.
[2025-01-18 09:51] LABS: Hematocrit 40.7 % (37.0-47.0); Hemoglobin 13.5 g/dl (12.0-16.0); Mean Corpuscular HGB Conc 33.2 g/dl (31.0-35.0); Mean Corpuscular Hemoglobin 29.3 pg (27.0-33.0); Mean Corpuscular Volume 88.3 fL (80.0-98.0); Platelet Count 213 X10*3/uL (160-400); Red Blood Count 4.61 X10*6/uL (4.20-5.50); White Blood Count 7.6 X10*3/uL (4.8-10.8)
--- NOTE | 2025-01-18 10:03 | P.HPHOSP_ITS ---
History of Present Illness Date of Service: 01/18/25 Chief Complaint: tachycardia, neck pain The patient is a 75-year-old female with a past medical history significant for diabetes and hypertension, breast cancer status post mastectomy who presented to the emergency room on 01/16/2025 with complaints of tachycardia and neck pain. She reports that after shoveling snow about a week prior to presentation, the patient was not feeling like herself. However, she specifically denies any anginal symptoms. She reports on the day of ED arrival, she checked her O2 sats, BP and pulse at home. Her HR was elevated and her BP was in the 140s systolic and hence due to this, she presented to the ED. In the ED, the patients work up showed a rising HS Trop-I from 26.1 to 188.6. EKG initially with rapid a. flutter with RVR and LBBB which was a new finding (unknow duration). She was evaluated by cardiology and underwent 2d echo severely reduced EF of 10-15%, grade 2 diastolic dysfunction, mild MR and mild to moderate TR, mild pulm HTN and severe global hypokinesis. The patient was given aspirin, statin and lovenox with plans to transfer from the ED to [facility] for further management (cardiac cath). However, per ED providers documentation -- [facility] does not have a bed available currently (the pt has remained in the ED over 2 midnights now) and hence, the patient will be admitted to [facility] for further management of her NSTEMI. The patient is seen and examined in the ED on 01/18/25 @ 930 AM. She denies any current chest pain or sob. Does endorse posterial/lateral L sided neck pain, which she states is chronic from known arthritis. Review of Systems 2 Review of Systems: Negative except HPI/interval history. [facility] Medical History (Updated 01/18/25 @ 10:28 by Kiran Steiner MD) Breast cancer Hyperlipidemia, unspecified Essential hypertension Diabetes mellitus Family History (Updated 01/16/25 @ 14:25 by Daniel Tinoco MD) Father Heart valve replaced Surgical History (Updated 01/18/25 @ 10:21 by Kiran Steiner MD) Hx of cholecystectomy H/O mastectomy Social History Smoked in Last 30 Days: No Use of substances other than those prescribed or required for medical reasons: No Advance Directives: No Advance Directives Information Provided: No Do you have a plan to hurt others: No Plan Meds Allergies Allergy/AdvReac Type Severity Reaction Status Date / Time No Known Allergies Allergy Verified 01/16/25 11:39 Active Medications: Current Medications Acetaminophen (Acetaminophen 325 Mg Tablet) 650 mg PO Q6H PRN PRN Reason: Pain, Mild 1-3,fever,headache Aspirin (Aspirin 81 Mg Tab.Chew) 81 mg PO DAILY [facility] Atorvastatin Calcium (Atorvastatin Calcium 80 Mg Tablet) 80 mg PO BEDTIME [facility] Bisoprolol Fumarate (Bisoprolol Fumarate 5 Mg Tablet) 5 mg PO DAILY [facility] Last Admin: 01/17/25 09:14 Dose: 5 mg Calcium Carbonate (Calcium Carbonate 750 Mg Tab.Chew) 750 mg PO Q4H PRN PRN Reason: Heartburn Empagliflozin (Empagliflozin 25 Mg Tablet) 25 mg PO DAILY [facility] Last Admin: 01/17/25 09:14 Dose: 25 mg Enoxaparin Sodium (Enoxaparin Sodium 80 Mg/0.8 Ml Syringe) 70 mg 1 mg/kg (70 mg) SUBCUT BID [facility] Last Admin: 01/17/25 21:33 Dose: 70 mg Glipizide (Glipizide Xl 10 Mg Tab.Er.24) 20 mg PO DAILY [facility] Last Admin: 01/17/25 09:14 Dose: 20 mg Magnesium Hydroxide (Milk Of Magnesia 30 Ml Oral.Susp) 30 ml PO DAILY PRN PRN Reason: Constipation Melatonin (Melatonin 3 Mg Tablet) 6 mg PO BEDTIME PRN PRN Reason: Insomnia Metformin HCl (Metformin Hcl Er 500 Mg Tab.Er.24h) 1,000 mg PO BEDTIME [facility] Last Admin: 01/17/25 21:33 Dose: 1,000 mg Ondansetron HCl (Ondansetron Hcl 4 Mg/2 Ml Vial) 4 mg IVPUSH Q8H PRN PRN Reason: Nausea and Vomiting Paroxetine HCl (Paroxetine Hcl 20 Mg Tablet) 20 mg PO DAILY [facility] Last Admin: 01/17/25 09:14 Dose: 20 mg Sodium Chloride (0.9 % Sodium Chloride Flush 3 Ml Syringe) 3 [facility] Home Medications ?Medication ?Instructions ?Recorded ?Confirmed ?Last Taken ?Type bisoprolol fumarate 5 mg tablet 5 mg DAILY 01/17/25 01/17/25 Unknown History empagliflozin 25 mg tablet 25 mg DAILY 01/17/25 01/17/25 Unknown History (Jardiance) glipizide 10 mg tablet, extended 20 mg PO QAM 01/17/25 01/17/25 Unknown History release 24 hr metformin 500 mg tablet,extended 1,000 mg PO QPM 01/17/25 01/17/25 Unknown History release 24 hr paroxetine HCl 20 mg tablet 20 mg PO DAILY 01/17/25 01/17/25 Unknown History simvastatin 40 mg tablet 40 mg QPM 01/17/25 01/17/25 Unknown History Physical Exam 2 Vital Signs and Narrative: Vital Signs: Last Vital Signs Temp 97.9 F 01/18/25 05:50 Pulse 84 01/18/25 05:50 Resp 16 01/18/25 05:50 BP 133/78 01/18/25 05:50 Pulse Ox 96 01/18/25 05:50 O2 Del Method Room Air 01/18/25 05:50 BMI result Body Mass Index 28.5 Const: Other: Constitutional - Awake and Alert, No apparent distress Eyes - PERRLA, EOMI Cardiovascular - S1S2, RRR, No edema Respiratory - Normal lung expansion, Normal respiratory effort, No respiratory distress, CTA bilaterally Gastrointestinal - NT / ND; +BS; No rebound or guarding - No CVA tenderness Extremities - no calf tenderness bilaterally, no swelling Musculoskeletal - Normal inspection, normal ROM Skin - Warm/Dry Neurological - Alert & oriented x3, No focal deficit Psychological - Appropriate affect Results Labs 01/18/25 00:06 01/16/25 11:51 Labs: Laboratory Results - last 24 hr 01/17/25 01/18/25 14:50 00:06 MCV 88.3 MCH 29.3 MCHC 33.2 RDW 14.0 Plt Count 213 MPV 10.0 Absolute Nucleated RBC 0.000 Nucleated RBC % (auto) 0.0 PT 16.1 H INR 1.4 H Assessment and Plan (1) NSTEMI (non-ST elevated myocardial infarction): Status: Acute Plan 75 yo F with risk factors for CAD presenting initially with concern over tachycardia and found to have elevated HS trop-I and A. flutter with RVR. Initial plan was transfer from [facility] ED to [facility] for further evaluation (including cardiac cath), however, after greater than 2 midnights of waiting in the ED for bed availability and no beds available at this time -- the pt will be admitted to [facility] for further management. 1. Suspected NSTEMI HS trop-I 26 -> 188.6; EKG with a. flutter (now sinus) and LBBB (of unknown duration); Echo with global hypokinesia and severely reduced EF (10-15%) started on lovenox - 1mg/kg BID; aspirin; statin; already on BB no clinical evidence of CHF Cardiology has seen the pt -- plan for transfer to [facility] when bed available repeat labs including HS trop-I now -- pending 2. DM hold orals use POC + sliding scale 3. HTN acceptable at this time -- continue baseline bisoprolol 4. Mood continue paroxetine Pt with NSTEMI requiring eventual transfer to [facility] for cardiac catheterization -- however, pt has already spent 2 midnights in the ED receiving treatment for her NSTEMI. At this time, there is no bed availability at [facility] and unknown time frame for when one is expected -- therefore, will be admitted as inpt to continue medical management of her suspected NSTEMI. Quality Stroke Does the patient have a stroke diagnosis?: No VTE Prior VTE?: No VTE Risk Level:: Medical - moderate - high VTE Device Contraindication: N/A - Device Ordered VTE Drug Contraindication: N/A - Med Ordered
[2025-01-18 10:15] LABS: Anion Gap 16 (12-20); Blood Urea Nitrogen 15 mg/dL (9-16); Calcium 9.5 mg/dL (8.4-10.2); Carbon Dioxide 21 mmol/L (22-29); Chloride 107 mmol/L (96-108); Creatinine Clr Calc Pharmacy 62.9; Estimated Glomerular Filt Rate > 60; Glucose Random 143 mg/dL (60-115); Potassium 4.2 mmol/L (3.3-5.1); Sodium 140 mmol/L (135-145)
[2025-01-18] MEDS: PARoxetine HCL 20 MG TABLET PO (10:46)
[2025-01-18] MEDS: Enoxaparin Sodium 80 MG/0.8 ML SYRINGE 70 MG SUBCUT ×2 (10:46→21:51)
[2025-01-18] MEDS: Empagliflozin 25 MG TABLET PO (10:46)
[2025-01-18] MEDS: Aspirin 81 MG TAB.CHEW PO (10:46)
[2025-01-18] MEDS: Bisoprolol Fumarate 5 MG TABLET PO (10:46)
[2025-01-18] MEDS: 0.9 % Sodium Chloride Flush 3 ML SYRINGE IVFLUSH (10:47)
[2025-01-18 13:29] LABS: Glucose, Whole Blood 139 mg/dL (60-115)
[2025-01-18 16:23] VITALS: BP 121/67; PULSE 75; RESP 16; TEMP 36.8; O2SAT 95
--- NOTE | 2025-01-18 16:40 | PM.EVENT ---
Event Note Date of Service: 01/18/25 Event Note: Called [facility] transfer line for update on transfer -- still no bed at this time Pt remains chest pain free and hemodynamically stable. Will continue with medical mgmt for the time being. Time Spent With Patient Time: Total time managing care of this patient today ____ minutes.
--- NOTE | 2025-01-18 16:41 | PM.DS ---
DS: Providers Provider Date of Service: 01/19/25 <Paulie Wright MD - Last Filed: 01/19/25 09:52> Date of admission: 01/18/25 10:17 <Kiran Steiner MD - Last Filed: 01/18/25 16:51> Date of discharge: 01/19/25 <Paulie Wright MD - Last Filed: 01/19/25 09:52> Primary care physician: Rema Fong MD <Kiran Steiner MD - Last Filed: 01/18/25 16:51> Consults: 01/16/25 13:48 Consult to Cardiology Stat Consulting Provider: [facility] Reason for consultation: Wide complex tachycardia Has provider been notified: Yes 01/18/25 10:03 Consult to Cardiology Routine Consulting Provider: [facility] Reason for consultation: nstemi <Kiran Steiner MD - Last Filed: 01/18/25 16:51> DS: Diagnosis Discharge Diagnosis (1) NSTEMI (non-ST elevated myocardial infarction): Status: Acute <Kiran Steiner MD - Last Filed: 01/18/25 16:51> (2) New onset left bundle branch block (LBBB): Status: Acute <Kiran Steiner MD - Last Filed: 01/18/25 16:51> (3) Atrial flutter with rapid ventricular response: Status: Acute <Kiran Steiner MD - Last Filed: 01/18/25 16:51> DS: Summary Hospital Course Hospital Course: HPI From admission H&P: The patient is a 75-year-old female with a past medical history significant for diabetes and hypertension, breast cancer status post mastectomy who presented to the emergency room on 01/16/2025 with complaints of tachycardia and neck pain. She reports that after shoveling snow about a week prior to presentation, the patient was not feeling like herself. However, she specifically denies any anginal symptoms. She reports on the day of ED arrival, she checked her O2 sats, BP and pulse at home. Her HR was elevated and her BP was in the 140s systolic and hence due to this, she presented to the ED. In the ED, the patients work up showed a rising HS Trop-I from 26.1 to 188.6. EKG initially with rapid a. flutter with RVR and LBBB which was a new finding (unknow duration). She was evaluated by cardiology and underwent 2d echo severely reduced EF of 10-15%, grade 2 diastolic dysfunction, mild MR and mild to moderate TR, mild pulm HTN and severe global hypokinesis. The patient was given aspirin, statin and lovenox with plans to transfer from the ED [place] [facility] [place] (cardiac cath). However, per ED providers documentation -- [facility] [place] not have a bed available currently (the pt has remained in the ED over 2 midnights now) and hence, the patient will be admitted to [facility] for further management of her NSTEMI. The patient is seen and examined in the ED on 01/18/25 @ 930 AM. She denies any current chest pain or sob. Does endorse posterial/lateral L sided neck pain, which she states is chronic from known arthritis. Hospital Course: Pt was continued on lovenox 1mg kg/bid, aspirin, statin and beta-jean-paul. She was monitored on telemetry. She has remained hemodynamically stable and chest pain free. Her last HS trop-I is downtrending (decrased from 188 to 46). She has remained in sinus rhythm. She has been on lovenox for NSTEMI and AFIB and should be changed to oral anticoation at discharge. She is agreeable on transfer to [facility] [place] further work up and evaluation. <Kiran Steiner MD - Last Filed: 01/18/25 16:51> Time Attestation Discharge Coordination Time (in mins): 35 <Paulie Wright MD - Last Filed: 01/19/25 09:52> Quality: Safe Use of Opioids Does Pt have an Active Cancer Diagnosis on the Problem List?: No <Paulie Wright MD - Last Filed: 01/19/25 09:52> Quality: Stroke Does the patient have a stroke diagnosis?: No <Paulie Wright MD - Last Filed: 01/19/25 09:52> Physical Exam Vital Signs: Vital Signs: Last Vital Signs Temp 98.2 F 01/18/25 16:23 Pulse 75 01/18/25 16:23 Resp 16 01/18/25 16:23 BP 121/67 01/18/25 16:23 Pulse Ox 95 01/18/25 16:23 O2 Del Method Room Air 01/18/25 16:23 BMI result Body Mass Index 28.5 <Kiran Steiner MD - Last Filed: 01/18/25 16:51> Vital Signs: Selected Entries 01/19/25 04:00 01/19/25 07:09 Temperature 96.8 F Pulse Rate 82 Respiratory Rate 16 Blood Pressure 110/72 123/68 Pulse Oximetry 97 Oxygen Delivery Me thod Room Air <Paulie MD Adriana - Last Filed: 01/19/25 09:52> Const: Other: General - no acute distress, appears comfortable Cardiovascular - regular rate and rhythm, S1-S2 Lungs - normal respiratory effort, clear to auscultation bilaterally, no wheezing Abdomen - soft, nontender, no rebound or guarding Extremities - no edema bilaterally Neuro - awake and alert, no focal deficits <Kiran Steiner MD - Last Filed: 01/18/25 16:51> DS: Data Data Completed and Pending Completed studies during hospitalization [Text1]: Echo: Transthoracic Echocardiogram Patient (Last, First, Middle): Flor Guzman, Gender: Female Date of : 1950 Age: 75 Procedure Date: 01/16/2025 Procedure Type: Transthoracic Echocardiogram Location: ER Height: 157.48 cm Weight: 70.31 kg BSA: 1.72 m2 Heart Rate: bpm BP: 113 / 67 mmHg Supervisor Steno Pool: ROEL Referring MD: Chad Casas MD Symptoms: new onset LBBB Study Quality: Adequate with contrast Conclusions: - The left ventricular systolic function is severely decreased. The visually estimated ejection fraction is between 10-15%. - Evidence suggests grade II (moderate) diastolic dysfunction. - There is moderate calcification of the aortic valve. - There is severe mitral annular calcification. There is mild mitral valve regurgitation. - There is mild to moderate tricuspid valve regurgitation. - Mild pulmonary hypertension is present. Findings Procedure Information Contrast agent, definity, is being given per protocol without apparent complications. Left Ventricle Normal left ventricular cavity size. The left ventricular systolic function is severely decreased. The visually estimated ejection fraction is between 10-15%. There is severe global hypokinesis. There is paradoxical septal motion consistent with a left bundle branch block. Evidence suggests grade II (moderate) diastolic dysfunction. Right Ventricle Normal right ventricular cavity size. There is moderately decreased right ventricular systolic function. Atria The left atrium is moderately dilated. The right atrium is normal in size. Aortic Valve There is moderate calcification of the aortic valve. There is no aortic valve stenosis. There is no aortic valve regurgitation. Mitral Valve There is severe mitral annular calcification. There is mild mitral valve regurgitation. There is no mitral valve stenosis. Pulmonic Valve The pulmonic valve is likely normal. Tricuspid Valve There is mild to moderate tricuspid valve regurgitation. Mild pulmonary hypertension is present. Great Vessels The asc aorta is normal in size. Venous The inferior vena cava is dilated and collapses less than 50% with inspiration. Pericardium/Pleural There is no evidence of pericardial effusion. Prior Study Comparison No prior study available for comparison. Measurements 2D Linear Measurements IVSd: 0.82 0.6-0.9/0.6-1.0 cm LVIDd: 5.04 3.9-5.3/4.2-5.9 cm LVIDd Index: 2.93 2.4-3.2/2.2-3.1 cm/m2 LVIDs: 4.19 2.0-3.6 cm LVPWd: 0.84 0.7-1.1 cm LA Diam: 4.40 2.7-3.8/3.0-4.0 cm LAIDs Index: 2.56 1.5-2.3 cm/m2 LV Mass: 180.35 67-162/88-224 g LV Mass Index: 104.85 43-95/49-115 g/m2 LVOT Diam: 1.80 3.0+(-)1.3 cm 2D Systolic Function EF 4C: 15.60 >55% EF 2C: 23.60 >55% EF BiP: 19.90 >55% Mitral Valve MV VTI: 0.24 MV Pk Alfred: 1.28 MV Mn Alfred: 0.66 MV Pk Grad: 7.00 MV Mn Grad: 2.00 MV Pk E: 1.19 MV PK A: 0.85 MV Decel Time: 137.00 E/A: 1.40 E'Lateral: 3.49 E'Medial: 2.19 E/E' Med: 54.30 E/E' Lat: 34.10 PHT: 40.00 MVA PHT: 5.50 MVA Continuity: 1.21 Decel [place]: 8.72 Aortic Valve AoV Pk Alfred: 1.15 AoV Mn Alfred: 0.84 AoV VTI: 0.23 AoV Pk Grad: 5.00 Aov Mn Grad: 3.00 RHONDA Cont.VTI: 1.30 LVOT LVOT Pk Alfred: 0.63 LVOT Mn Alfred: 0.44 LVOT VTI: 0.12 LVOT Pk Grad: 2.00 LVOT Mn Grad: 1.00 LVOT Diam: 1.80 LVOT Area: 2.54 Diastolic Function MV Pk E: 1.19 MV Pk A: 0.85 E/A: 1.40 E'Medial: 2.19 E/E' Med: 54.30 E' Laterial: 3.49 E/E' Lat: 34.10 Right Ventricle TAPSE (mm): 12.60 TVS' Alfred: 4.95 Tricuspid Valve TR Pk Alfred: 2.69 TR Pk Grad: 29.00 RA Press: 15.00 RVSP: 44.00 Great Vessels Aorta Sinus of Valsalva: 2.94 2.0-3.[address] [place]: 2.17 1.7-3.4 cm Ao Asc: 3.30 2.1-3.4 cm Updated in Other Vendor System with Status of Final Daniel Tinoco MD electronically signed on 01/16/2025 3:17:24 PM with status of Final <Kiran Steiner MD - Last Filed: 01/18/25 16:51> Labs on day of discharge: Laboratory Results - last 24 hr 01/18/25 01/18/25 01/18/25 00:06 09:44 13:26 WBC 7.6 RBC 4.61 Hgb 13.5 Hct 40.7 MCV 88.3 MCH 29.3 MCHC 33.2 RDW 14.0 Plt Count 213 MPV 10.0 Absolute Nucleated RBC 0.000 Nucleated RBC % (auto) 0.0 Sodium 140 Potassium 4.2 Chloride 107 Carbon Dioxide 21 L Anion Gap 16 BUN 15 Creatinine 0.70 Estim Creat Clear Calc 62.9 Estimated GFR > 60 POC Glucose 139 H Random Glucose 143 H Calcium 9.5 Troponin I High Sens 46.0 H D <Kiran Steiner MD - Last Filed: 01/18/25 16:51> Discharge Plan Discharge Anticipated Discharge Date/Time: 01/19/25 07:12 <Kiran Steiner MD - Last Filed: 01/18/25 16:51> Patient Disposition: [facility] <Kiran Steiner MD - Last Filed: 01/18/25 16:51> Discharge Diagnosis: NSTEMI <Kiran Steiner MD - Last Filed: 01/18/25 16:51> NSTEMI <Paulie Wright MD - Last Filed: 01/19/25 09:52> Referrals: [facility] [Outside] - 1 Week Rema Fong MD [Primary Care Provider] - 1 Week <Kiran Steiner MD - Last Filed: 01/18/25 16:51> Discharge Medications: New insulin lispro [Admelog U-100 Insulin lispro] 100 unit/mL Solution See Protocol subcut QIDACHS Qty: 10 0RF Protocol: Insulin Correction Scale Less than or equal to 110 ---- Give (units): 0 111 to 150 Give (units): 0 151 to 200 Give (units): 2 201 to 250 Give (units): 4 251 to 300 Give (units): 6 301 to 350 Give (units): 8 Greater than 350 Give (units): 10 Call MD if Blood Glucose > : 350 atorvastatin 80 mg Tablet 80 mg PO BEDTIME Qty: 1 0RF aspirin 81 mg Tablet,Chewable 81 mg PO DAILY Qty: 1 0RF enoxaparin [Lovenox] 80 mg/0.8 mL syringe 80 mg subcut Q12H Qty: 8 0RF Continued bisoprolol fumarate 5 mg tablet 5 mg DAILY paroxetine HCl 20 mg tablet 20 mg PO DAILY Held glipizide 10 mg tablet extended release 24hr 20 mg PO QAM Hold Instructions: Resume on 01/20/25. Hold until evaluated at [facility] metformin 500 mg tablet extended release 24 hr 1,000 mg PO QPM Hold Instructions: Resume on 01/20/25. Hold until evaluated at [facility] Jardiance 25 mg tablet 25 mg DAILY Hold Instructions: Resume on 01/20/25. Hold until evaluated at [facility] Discontinued simvastatin 40 mg tablet 40 mg QPM <Kiran Steiner MD - Last Filed: 01/18/25 16:51> Discharge Orders: Discharge Order (Routine); Ordered 01/19/25 Ordered By: Paulie Wright <Kiran Steiner MD - Last Filed: 01/18/25 16:51> Diet: Advance to usual diet <Kiran Steiner MD - Last Filed: 01/18/25 16:51> Advance to usual diet <Paulie Wright MD - Last Filed: 01/19/25 09:52> Activity on Discharge: per [facility] [place] <Kiran Steiner MD - Last Filed: 01/18/25 16:51> per [facility] [place] <Paulie Wright MD - Last Filed: 01/19/25 09:52> Stand Alone Forms: Patient Portal Discharge page <Kiran Steiner MD - Last Filed: 01/18/25 16:51> Print Language: Guinean <Kiran Steiner MD - Last Filed: 01/18/25 16:51> Care Plan Goals: To transfer to [facility] [place] further evaluation <Kiran Steiner MD - Last Filed: 01/18/25 16:51> Health Concerns: See d/c summary <Kiran Steiner MD - Last Filed: 01/18/25 16:51> Plan of Treatment: See d/c summary <Kiran Steiner MD - Last Filed: 01/18/25 16:51> Assessment: See d/c summary <Kiran Steiner MD - Last Filed: 01/18/25 16:51>
[2025-01-18 18:44] LABS: Glucose, Whole Blood 131 mg/dL (60-115)
[2025-01-18 20:31] VITALS: BP 115/63; PULSE 72; RESP 16; TEMP 36.3; O2SAT 98
[2025-01-18] MEDS: Atorvastatin Calcium 80 MG TABLET PO (21:51)
[2025-01-18] MEDS: Insulin Lispro 100 UNIT/ML 3 ML VIAL SUBCUT (21:52)
[2025-01-18 22:48] LABS: Glucose, Whole Blood 171 mg/dL (60-115)
[2025-01-18 23:05] VITALS: PULSE 135
[2025-01-18 23:08] VITALS: BP 117/82; PULSE 74
[2025-01-18 23:19] VITALS: BMI 28.5
[2025-01-19 04:00] VITALS: BP 110/72; PULSE 76; RESP 18; TEMP 36.4; O2SAT 98
[2025-01-19 07:09] VITALS: BP 123/68; PULSE 82; RESP 16; TEMP 36; O2SAT 97
[2025-01-19 07:21] LABS: Glucose, Whole Blood 147 mg/dL (60-115)
[2025-01-19] MEDS: Bisoprolol Fumarate 5 MG TABLET PO (08:21)
[2025-01-19] MEDS: Aspirin 81 MG TAB.CHEW PO (08:22)
[2025-01-19] MEDS: Enoxaparin Sodium 80 MG/0.8 ML SYRINGE 70 MG SUBCUT (08:23)
[2025-01-19] MEDS: Empagliflozin 25 MG TABLET PO (08:23)
[2025-01-19] MEDS: PARoxetine HCL 20 MG TABLET PO (08:23)
[2025-01-19] MEDS: 0.9 % Sodium Chloride Flush 3 ML SYRINGE IVFLUSH (08:30)
--- NOTE | 2025-01-19 08:55 | MHC.CM.PN ---
CM met with Patient at bedside and addressed IMM with her; original was given to Patient and a copy has been placed on the chart. Patient lives in a house with her /HCP/[place] and she required no services nor DME [employer]. Home self care vs transfer to [facility] is the tentative plan and CM has initiated and will follow for dc planning. PCP is Dr. Rema Fong and would transport id dc'd to home.
--- NOTE | 2025-01-19 09:30 | PM.PNCARD ---
Subjective Subjective Date of Service: 01/19/25 Interval history: Patient states that she feels okay. No new concerns from cardiac. She is still awaiting for a bed at [facility]. Review of Systems Review of Systems Yes all other systems are reviewed and are negative Constitutional: Reports as per HPI and Reports no additional constitutional complaints Eyes: Reports as per HPI and Denies no additional eye complaints Denies system reviewed and no additional complaints, except as documented and Reports as per HPI Cardiovascular: Reports as per HPI, Reports no additional cardiovascular complaints, Denies acrocyanosis, Denies cool extremities, Denies chest pain, Denies leg edema, Denies lightheadedness, Denies palpitations and Denies dyspnea Respiratory: Reports as per HPI, Denies no additional respiratory complaints and Denies dyspnea Gastrointestinal: Reports as per HPI and Denies no additional gastrointestinal complaints Genitourinary: Reports as per HPI Musculoskeletal: Reports no additional musculoskeletal complaints and Reports as per HPI Skin/Breast: Reports system reviewed and no additional complaints, except as docu Reports system reviewed and no additional complaints, except as documented and Reports as per HPI Psychiatric: Reports no additional psychiatric complaints and Reports as per HPI Endocrine: Reports no additional endocrine complaints, Reports as per HPI and Denies palpitations Hematologic/Lymphatic: Reports no additional hematologic/lymphatic complaints and Reports as per HPI Allergic/Immunologic: Reports no additional allergic/immunologic complaints and Reports as per HPI Physical Exam Vital Signs: Last Vital Signs Temp 96.8 F 01/19/25 07:09 Pulse 82 01/19/25 07:09 Resp 16 01/19/25 07:09 BP 123/68 01/19/25 07:09 Pulse Ox 97 01/19/25 07:09 O2 Del Method Room Air 01/19/25 07:09 BMI result Body Mass Index 28.5 Const General: comfortable and no acute distress Orientation/consciousness: patient oriented x3 HEENT Other: Unremarkable Head: Yes normal to inspection Neck Neck: Yes normal visual inspection Chest Chest palpation & inspection: normal inspection of the chest Resp Auscultation: clear to auscultation bilaterally Cardio Palpation: normal PMI Heart sounds: S1 normal heart sound present, S2 normal heart sound present, no gallops, no murmurs and no rubs GI Palpation (GI): Soft to palpation Back/Spine/Pelvis Other: unremarkable Skin General skin exam: no rashes or lesions noted Neuro General: patient oriented x3 Extrem General: Yes normal to inspection Psych Mental Status: mental status grossly normal Objective Labs and Meds 01/18/25 00:06 01/18/25 09:44 Lab results: Laboratory Results - last 24 hr 01/18/25 01/18/25 01/18/25 00:06 09:44 13:26 WBC 7.6 RBC 4.61 Hgb 13.5 Hct 40.7 MCV 88.3 MCH 29.3 MCHC 33.2 RDW 14.0 Plt Count 213 MPV 10.0 Absolute Nucleated RBC 0.000 Nucleated RBC % (auto) 0.0 Sodium 140 Potassium 4.2 Chloride 107 Carbon Dioxide 21 L Anion Gap 16 BUN 15 Creatinine 0.70 Estim Creat Clear Calc 62.9 Estimated GFR > 60 POC Glucose 139 H Random Glucose 143 H Calcium 9.5 Troponin I High Sens 46.0 H D 01/18/25 01/18/25 01/19/25 18:41 21:21 07:10 WBC RBC Hgb Hct MCV MCH MCHC RDW Plt Count MPV Absolute Nucleated RBC Nucleated RBC % (auto) Sodium Potassium Chloride Carbon Dioxide Anion Gap BUN Creatinine Estim Creat Clear Calc Estimated GFR POC Glucose 131 H 171 H 147 H Random Glucose Calcium Troponin I High Sens Progress Note: A&P Assessment and plan (1) Atrial flutter with rapid ventricular response: Status: Acute (2) Left bundle branch block: Status: Acute (3) Cardiomyopathy: Status: Acute Plan Echocardiogram with LVEF of 10-15%. Moderate diastolic dysfunction. Moderate aortic valve calcification. Severe mitral annular calcification with mild regurgitation. [id number] tricuspid regurgitation and mild pulmonary hypertension. Suspect EKG initially had atrial flutter with rapid rate but then sinus rhythm. Left bundle-branch block seems to be new finding. Unknown duration. No overt cardiac symptoms. High sensitivity troponin levels are 26, 188 and 46. As it has been more than 48 hours, stop Lovenox. She is on bisoprolol otherwise. Aspirin, statins. She is still awaiting bed at [facility]. Called the transfer center and they stated that she is 1. In the list and will be going today. We will require diagnostic catheterization, EP evaluation. Discussed with patient and she agrees. Discussed with Dr. Wright. Time Spent With Patient Time: Total time managing care of this patient today ____ minutes. Progress Note: Quality Stroke Does the patient have a stroke diagnosis?: No Procedures Date of Service Date of Service: 01/19/25
--- NOTE | 2025-01-19 09:30 | MHC.CM.PN ---
Patient will be transferred to [facility] today.
--- NOTE | 2025-01-19 10:25 | PC.NURSE ---
Assumed care of patient at approx 0700. Pt A&Ox4, VSS, ambulating independently in the room and offering no complaints. Pt educated on transfer orders to [facility]. Report called to receiving RN at 1020.
== END 2025-01-19 10:16 | disposition short-term general hospital (02) | DRG 281 ==
LOC: HO.ED 01-18 09:30 → HO.EDOVER 01-18 10:18 → HO.IMC 01-18 19:30
PROVIDERS: Emergency Medicine; Physician Assistant Medical; Admitting Provider Family Medicine; Emergency Provider Emergency Medicine; PCP Internal Medicine Endocrinology, Diabetes & Metabolism; Visit Provider Internal Medicine
DX: I21.4 Non-ST elevation (NSTEMI) myocardial infarction (principal); I48.92 Unspecified atrial flutter; I44.7 Left bundle-branch block, unspecified; I10 Essential (primary) hypertension; E11.9 Type 2 diabetes mellitus without complications; I48.91 Unspecified atrial fibrillation; I08.1 Rheumatic disorders of both mitral and tricuspid valves; I27.20 Pulmonary hypertension, unspecified; Z20.822 Contact with and (suspected) exposure to COVID-19; Z85.3 Personal history of malignant neoplasm of breast; Z79.84 Long term (current) use of oral hypoglycemic drugs; Z79.899 Other long term (current) drug therapy
CPT/HCPCS: 0241U; 36415; 71045; 80048; 80053; 82947; 83735; 84484; 85025; 85027; 85610; 85730; 93005; 93306; 99285; J1650; Q9957

== ENCOUNTER → 2025-01-16 11:48 | Outpatient (BNV) | payer MEDICARE, SELFPAY | PROVIDERS: Emergency Provider Emergency Medicine; PCP Internal Medicine Endocrinology, Diabetes & Metabolism; Visit Provider Internal Medicine | DX: I48.92 Unspecified atrial flutter (principal); I44.7 Left bundle-branch block, unspecified; I42.9 Cardiomyopathy, unspecified | CPT/HCPCS: 99233 ==

== ENCOUNTER → 2025-01-16 15:24 | Outpatient (BNV) | payer MEDICARE, SELFPAY | PROVIDERS: Emergency Provider Emergency Medicine; PCP Internal Medicine Endocrinology, Diabetes & Metabolism; Visit Provider Radiology Diagnostic Radiology | DX: R00.2 Palpitations (principal) | CPT/HCPCS: 71045 ==

== ENCOUNTER → 2025-01-17 05:50 | Outpatient (BNV) | payer MEDICARE, SELFPAY | PROVIDERS: Emergency Provider Emergency Medicine; PCP Internal Medicine Endocrinology, Diabetes & Metabolism; Visit Provider Internal Medicine | DX: I44.7 Left bundle-branch block, unspecified (principal); I49.3 Ventricular premature depolarization | CPT/HCPCS: 93010 ==

== ENCOUNTER → 2025-01-18 10:17 | Outpatient (BNV) | payer MEDICARE, SELFPAY | PROVIDERS: Admitting Provider Family Medicine; Emergency Provider Emergency Medicine; PCP Internal Medicine Endocrinology, Diabetes & Metabolism; Visit Provider Family Medicine | DX: I21.4 Non-ST elevation (NSTEMI) myocardial infarction (principal) | CPT/HCPCS: 99223; 99499 ==

== ENCOUNTER 2025-02-09 13:42 | Outpatient (AMB) | payer MEDICARE, SELFPAY ==
[2025-02-09 13:44] VITALS: BP 108/62; PULSE 68; BMI 28.1
--- NOTE | 2025-02-09 13:44 | MHC.OFFVIS ---
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 Allergies No Known Allergies Allergy (Verified 02/09/25 13:50) Medication List - Last Reconciled 02/09/25 by Paty Mosley, CARLINE-C amiodarone 200 mg PO DAILY apixaban (Eliquis) 5 mg PO BID aspirin 81 mg PO DAILY atorvastatin 80 mg PO BEDTIME bisoprolol fumarate 5 mg DAILY empagliflozin (Jardiance) 25 mg DAILY glipizide ER 20 mg PO QAM metformin ER 1,000 mg PO QPM paroxetine HCl 20 mg PO DAILY spironolactone 25 mg PO DAILY valsartan 40 mg PO DAILY HPI HPI [facility] hosp F/U: Details: Flor is a 75-year-old female with past medical history of hypertension, hyperlipidemia who recently presented [place] [facility] with report of elevated heart rate. She was found to have a flutter RVR with left bundle branch block that was treated with rate control. Her troponins were elevated, meeting criteria for NSTEMI. An echocardiogram showed EF 10-15% with grade 2 diastolic dysfunction. She was managed medically until bed available at [facility] then transferred for cardiac catheterization showing multivessel disease that was not felt to be the cause of her NSTEMI. For AFib she was put on amiodarone and medications for neurohormonal modulation. Today she reports she has been feeling generally well since her hospital discharge. She does have some fatigue and needs to rest at times throughout the day. She has been doing only light physical activities. She denies having any chest discomfort at rest or with activities. She denies shortness of breath, PND, orthopnea or edema. No heart palpitations, lightheadedness, presyncope, syncope. Compliant with all meds. No bleeding issues reported. She had questions about her condition and I spent much time going over her cardiac findings and treatment plans with her. FOR[facility]LY [facility] Medical History (Updated 02/09/25 @ 15:07 by Paty Mosley, CARLINE-C) Breast cancer Hyperlipidemia, unspecified Essential hypertension Diabetes mellitus Surgical History (Updated 02/09/25 @ 15:06 by Paty Mosley NP-C) Hx of cardiac cath Hx of cholecystectomy H/O mastectomy Family History Father Heart valve replaced Social History Household Members: Spouse Housing: House Do you presently have visiting nurse or other home services: No Patient Tobacco Use Status: Never used Tobacco service: No Review of Systems Const All systems reviewed & are unremarkable except as noted in HPI and below Reports fatigue ENT Denies dizziness Card Denies chest pain, Denies chest pain at rest, Denies chest pain with activity, Denies rapid heart rate, Denies pedal edema, Denies edema, Denies leg edema, Denies lightheadedness, Denies palpitations, Denies dyspnea, Denies dyspnea on exertion and Denies orthopnea Resp Denies cough, Denies dyspnea and Denies dyspnea on exertion GI Denies hematochezia and Denies change in stool character Musc Denies abnormal gait, Denies limited range of motion, Denies muscle cramps, Denies muscle weakness, Denies numbness, Denies radiating pain into limb, Denies stiffness and Denies tingling Neuro Denies abnormal gait, Denies dizziness, Denies numbness and Denies tingling Endo Reports fatigue and Denies palpitations Physical Exam Vital Signs: Last Vital Signs Pulse 68 02/09/25 13:44 BP 108/62 02/09/25 13:44 BMI result Body Mass Index 28.1 Const General: cooperative, healthy appearing, comfortable and no acute distress Orientation/consciousness: patient oriented x3 Neck Neck: Yes normal visual inspection Resp Effort & Inspection: normal respiratory effort Auscultation: clear to auscultation bilaterally, no crackles, no rales, no rhonchi and no wheezes Cardio Rate: regular rate Rhythm: regular rhythm Heart sounds: S1 normal heart sound present, S2 normal heart sound present, no murmurs and no rubs Neuro General: patient oriented x3 Extrem Other: right radial cath site well healed, easily palpable right radial pulse General: Yes normal to inspection, No no pedal edema and No calf tenderness Psych Appearance: grossly normal Mental Status: mental status grossly normal Speech and movement: Normal speech and movement present Office Procedures EKG Details: Today, read by me, normal sinus rhythm, left bundle branch block, JT index 97.3, rate 68 [id number], Complete Assessment & Plan Assessment & Plan (1) Atrial flutter with rapid ventricular response: Code(s): I48.92 - Unspecified atrial flutter Category: Medical Plan: New finding of atrial flutter 01/16/2025. Treated initially for heart rate control then put on amiodarone loading dose. She did convert back to sinus rhythm. Echocardiogram showed EF 10-15%, grade 2 diastolic dysfunction, mild MR, [id number] TR, left atrium moderately dilated, right atrium normal. EKG done today showing sinus rhythm, left bundle branch block, rate 68, JT index 97.3. Continue amiodarone 200 mg daily. Continue bisoprolol. Continue Eliquis for anticoagulation. Diagnosis of atrial flutter, stroke risk and treatment plans reviewed with her. Will be rechecking limited echo prior to next visit. Atrial flutter ablation is being considered. No med changes at this time. (2) Cardiomyopathy: Code(s): I42.9 - Cardiomyopathy, unspecified Category: Medical Plan: New finding of cardiomyopathy with EF 10-15%. Likely multifactorial in the setting of multivessel coronary artery disease, atrial flutter with RVR, left bundle branch block. She is not fluid overloaded on examination. Will have her stop valsartan and start on Entresto. BMP in 1 week. (will add labs for amiodarone monitoring). Continue bisoprolol, Jardiance, Aldactone. Signs and symptoms of heart failure reviewed. Emergency care if ever needed for symptoms. Repeat limited echo in 1 month. (3) NSTEMI (non-ST elevated myocardial infarction): Code(s): I21.4 - Non-ST elevation (NSTEMI) myocardial infarction Category: Medical Plan: Troponin elevation meeting criteria for NSTEMI in the setting of AFib RVR. Cardiac catheterization done at [facility] confirms multivessel coronary artery disease. Her degree of cardiomyopathy was out of proportion with the degree CAD. At this time she is being managed medically as she is asymptomatic. Reviewed the signs and symptoms of angina with her. Will start in cardiac rehab. Continue aspirin, high-dose atorvastatin, bisoprolol. If she has anginal symptoms then coronary stents can be considered. (4) New onset left bundle branch block (LBBB): Code(s): I44.7 - Left bundle-branch block, unspecified Category: Medical Plan: New finding of left bundle branch block 01/16/2025 (5) S/P cardiac cath: Comment: Left main ostial 40% stenosis, MERVAT 3 flow, mid LAD proximal 65% stenosis, MERVAT 3 flow, 1st diagonal proximal 75% stenosis, MERVAT 3 flow, mid circumflex 90% stenosis, MERVAT 2 flow, right PDA proximal 65% stenosis, MERVAT 3 flow, mid RCA 40% stenosis, MERVAT 3 flow, ramus ostial 85% stenosis, MERVAT 3 flow Code(s): Z98.890 - Other specified postprocedural states Category: Surgical Plan: Right radial catheterization site healing well (6) Essential hypertension: Code(s): I10 - Essential (primary) hypertension Category: Medical Plan: On the low side today, asymptomatic. Changing valsartan over to Entresto. She checks home blood pressure and pulse readings. To call if systolic running less than 100. (7) Hyperlipidemia, unspecified: Code(s): E78.5 - Hyperlipidemia, unspecified Category: Medical Plan: [place] LDL goal less than 70. Continue high-dose atorvastatin. Plan recheck of fasting lipids prior to next visit. (8) Hospital discharge follow-up: Code(s): Z09 - Encounter for follow-up examination after completed treatment for conditions other than malignant neoplasm Category: Medical Plan: Recent [facility] reviewed. Plan Time spent on chart review, documentation, interview, assessment, additional 15 minute spent on patient education. Orders: Orders Comprehensive Met. Panel Today I42.9 - Cardiomyopathy, unspecified Cardiac Rehab Today I21.4 - Non-ST elevation (NSTEMI) myocardial infarction, I42.9 - Cardiomyopathy, unspecified, Z98.890 - Other specified postprocedural states TSH reflex Free T4 Today I48.92 - Unspecified atrial flutter Lipid Panel Today E78.5 - Hyperlipidemia, unspecified Medications: New sacubitril-valsartan 24-26 mg (Entresto) Stop Valsartan Start Entresto 1 tab PO BID 30 days 60 tabs 3RF amiodarone 200 mg PO DAILY 30 tabs 5RF empagliflozin (Jardiance) 10 mg PO DAILY 30 tabs 5RF apixaban (Eliquis) 5 mg PO BID 60 tabs 5RF Coding Level of Care Code Est Pt Level 5 (08858) Complex EM visit Add On G2211 Diagnoses Atrial flutter with rapid ventricular response I48.92 Cardiomyopathy I42.9 NSTEMI (non-ST elevated myocardial infarction) I21.4 New onset left bundle branch block (LBBB) I44.7 S/P cardiac cath Z98.890 Essential hypertension I10 Hyperlipidemia, unspecified E78.5 Hospital discharge follow-up Z09 CPT Codes EKG - CPT: 75078-[id number], Complete ([id number]) Time Spent (min) 45 Comment Complex case
--- OUTSIDE RECORDS SUMMARY | 2025-02-09 16:10 | XMS_ITS | Encounter Summary ---
Author Organization [facility] Address [id number] [place] [id number] Care Team Providers Care Locket Maker Name Role Phone Rema Fong MD Primary Care Provid er Encounter Details Date Type Department Care Team (Late st Contact Info) Description 02/02/[address] [facility] [address] [place] [address] [place] [address] Rema Fong MD [address] [place] [address] [address] [place] [address] Social History Tobacco Use Types Packs/Day Years Used Date Smoking Tobacco: Never Assessed Comments Unknown Sex and Gender Information Value Date Recorded Sex Assigned at Not on file Legal Sex Female 8:31 PM EST Gender Identity Not on file Sexual Orientation Not on file documented as of this encounter Progress Notes * Quynh Zamora - 02/02/2025 10:42 AM EDT Rosalba from PCP office said the patient has opt to go to [facility] instead. documented in this encounter Plan of Treatment Not on file documented as of this encounter Visit Diagnoses Not on filedocumented in this encounter Care Teams Locket Maker Relationship Specialty Start Date End Date Rema Fong MD [address] [place] [address] [address] [place] [address] PCP - General Endocrinology 02/02/25 documented as of this encounter
--- OUTSIDE RECORDS SUMMARY | 2025-02-09 16:11 | XMS_ITS | Continuity of Care Document ---
Author Organization [facility] [address] [place] [address] Phone [phone] Care Team Providers Care Rn Occupational Name Role Phone Rema Fong M.D. Care Team Informati on Decision Science Analyst [phone] Problems Active Problems Provider Date Essential hypertension Josiah Liu Onset: 07/17/2022 Gastroesophageal reflux disease Rema Davis M.D. Onset: 07/17/2022 Anxiety Rema Fong M.D. Ons et: 07/17/2022 Type 2 diabetes mellitus Rema Fong M.D. Onset: 07/17/2022 Carcinoma of breast Rema Fong M.D. Onset: 07/17/2022 Gallstone Rema Fong M.D. Ons et: 07/17/2022 Pure hypercholesterolemia Rema Fong M.D. Onset: 07/17/2022 Osteoporosis Rema Fong M.D. Ons et: 07/17/2022 Nonalcoholic steatohepatitis Rema ferreira M.D. Onset: 07/17/2022 Obesity Rema Fong M.D. Ons et: 07/17/2022 Atrial flutter Rema Fong M.D. Ons et: 01/27/2025 Dilated cardiomyopathy Josiah Liu Onset: 01/27/2025 Coronary atherosclerosis Rema Fong M.D. 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 06/03/2023 Paroxetine KCX80zm Tablets Take 1 Tablet Once Daily 90tabs Rema Fong M.D. 01/22/2023 Accu-Chek Joyce PlusStrips Use To Test Twice A Day 200units E11.9 Rema Fong M.D. 12/27/2022 Metformin HCL JT730wz Tablets ER 24HR Take 2 Tablets Once Daily 180tabs Rema Fong M.D. 11/06/2022 Glipizide ER10mg Tablets ER 24HR Take 2 Tablets Every Morning 180taveronica Fong M.D. Bisoprolol Butzrugi1xt Tablets take 1 tablet by mouth daily 90tabs Rema Fong M.D. Vitamin X355wxs (2000 Ut) Capsules 1 by mouth every day Rema Fong M.D. Calcium 500+O8140-192ao-Wmlg Tablets 1 by mouth every day Rema Fong M.D. Vitamin [id number] Tablets ER 1 by mouth every day Rema Fong M.D. Jbfglt04gf Capsules DR fox Fong M.D. Amiodarone HUQ481ad Tablets Take 1 Tablet By Mouth Once A Day 90taveronica Fong M.D. Rctfkxe0km Tablets Take 1 Tablet By Mouth Two Times A Day. 180taveronica Fong M.D. Aspirin Adult Low Iamh58ki Tablets DR 1 by mouth every day Unknown Atorvastatin Trxzrop55ka Tablets Take 1 Tablet By Mouth Every Day AT Bedtime. 90taveronica Fong M.D. Provjtlirfazsm37mp Tablets Take 1 Tablet By Mouth Every Day. 90taveronica Fong M.D. Jzbevntuv82nl Tablets Take 1 Tablet By Mouth Every Day. 90taveronica Fong M.D. Vital Signs Date Vital Result Comment 01/27/2025 9:31am BP Systolic 98 mmHg BP Diastolic 60 mmHg Heart Rate 64 /min Height 62 inches 5'2 Weight 157.00 lb BMI (Body Mass Index) 28.7 kg/m2 Results Test Acquired Date Facility Test Result H/L Range Note CBC With Differential/Plat elet 01/27/2025 [facility] WBC 7.3 x10E3/uL 3.4-10.8 RBC 4.71 x10E6/uL 3.77-5.2 8 Hemoglobin 13.7 g/dL 11.1-15. 9 Hematocrit 42.2 % 34.0-46. 6 MCV 90 fL 79-97 MCH 29.1 pg 26.6-33. 0 MCHC 32.5 g/dL 31.5-35. 7 RDW 12.5 % 11.7-15. 4 Platelets 284 x10E3/uL 150-450 Neutrophils 75 % Not Estab. Lymphs 16 % Not Estab. Monocytes 8 % Not Estab. Eos 1 % Not Estab. Basos 0 % Not Estab. Immature Cells TNP Neutrophils (Absolute) 5.5 x10E3/uL 1.4-7.0 Lymphs (Absolute) 1.2 x10E3/uL 0.7-3.1 Monocytes(Absol leila) 0.6 x10E3/uL 0.1-0.9 Eos (Absolute) 0.1 x10E3/uL 0.0- 0.4 Baso (Absolute) 0.0 x10E3/uL 0.0 -0.2 Immature Granulocytes 0 % Not Estab. Immature Grans (Abs) 0.0 x10E3/uL 0.0-0.1 NRBC TNP Hematology Comments: TNP Glucose Fingerstick 01/27/2025 Inhouse Glucose Fingerstick 183 Comp. Metabolic Panel (14) 01/27/2025 [facility] Glucose 99 mg/dL 70-99 BUN 20 mg/dL 8-27 Creatinine 0.81 mg/dL 0.57-1.0 0 eGFR 75 mL/min/1.73 >59 BUN/Creatinine Ratio 25 12-28 Sodium 139 mmol/L 134-144 Potassium 4.8 mmol/L 3.5-5.2 Chloride 103 mmol/L 96-106 Carbon Dioxide, Total 19 mmol/L Low 20-29 Calcium 9.8 mg/dL 8.7-10.3 Protein, Total 6.7 g/dL 6.0-8.5 Albumin 4.1 g/dL 3.8-4.8 Globulin, Total 2.6 g/dL 1.5-4.5 Bilirubin, Total 0.7 mg/dL 0.0-1.2 Alkaline Phosphatase 68 IU/L 44-121 Ast (Sgot) 23 IU/L 0-40 Alt (SGPT) 27 IU/L 0-32 Hemoglobin A1c 12/09/2024 Inhouse Hemoglobin A1c 6.6% Glucose Fingerstick 12/09/2024 Inhouse Glucose Fingerstick 174 N-Telopeptide, Urine 04/21/2024 [facility] N-Telopeptide 147 nmolBCE Not Estab. Creatinine, Urine 54.9 mg/dL Not Estab. N-Telo/Creat. Ratio 30 nMBCE/mMCr 0-89 Interpretive Guide: See Comment: 1 N-Telopeptide, Urine 02/07/2024 [facility] N-Telopeptide, Urine <pending> Albumin/Creatinin e Ratio, Random Urine 02/05/2024 [facility] Creatinine, Urine 56.4 mg/dL Not Estab. Albumin, Urine 13.7 ug/mL Not Estab. Alb/Creat Ratio 24 mg/gcreat 0-2 9 2 Hemoglobin A1c 02/05/2024 Inhouse Hemoglobin A1c 7.1% Glucose Fingerstick 02/05/2024 Inhouse Glucose Fingerstick 166 Comprehensive Metabolic Panl 10/08/2023 [facility] Glucose 99 mg/dL (70-99) BUN 20 mg/dL (8-23) Creatinine 0.6 mg/dL (0.5-1.0 ) Sodium 139 mmol/L (133-145 ) Potassium 4.2 mmol/L (3.6-5.2 ) Chloride 100 mmol/L (98-107) Bicarbonate 25 mmol/L (22-29) Anion Gap 14 (4-17) Albumin 5.0 GM/DL High (3.4-4.8 ) Calcium 10.3 mg/dL (8.6-10. 5) Bilirubin,Total 0.5 mg/dL (0-1.2 ) Total Protein 7.8 GM/DL (6.2-8.2 ) Ag Ratio 1.8 Ast 36 U/L High (0-32) Alk Phos 65 U/L (35-104) Alt 28 U/L (0-33) Estimated GFR Creatinine 93 ML/MIN/1.73M 2 3 Hemoglobin A1c 10/08/2023 Inhouse Hemoglobin A1c 6.6% Glucose Fingerstick 10/08/2023 Inhouse Glucose Fingerstick 135 Glucose Fingerstick 06/03/2023 Inhouse Glucose Fingerstick 186 Hemoglobin A1c 06/03/2023 Inhouse Hemoglobin A1c 7.4% Comprehensive Metabolic Panl 06/03/2023 [facility] Glucose 161 mg/dL High (70-99) BUN 19 mg/dL (8-23) Creatinine 0.7 mg/dL (0.5-1.0 ) Sodium 138 mmol/L (133-145 ) Potassium 4.7 mmol/L (3.6-5.2 ) Chloride 100 mmol/L (98-107) Bicarbonate 26 mmol/L (22-29) Anion Gap 12 (4-17) Albumin 4.9 GM/DL High (3.4-4.8 ) Calcium 10.5 mg/dL (8.6-10. 5) Bilirubin,Total 0.4 mg/dL (0-1.2 ) Total Protein 7.7 GM/DL (6.2-8.2 ) Ag Ratio 1.8 Ast 25 U/L (0-32) Alk Phos 65 U/L (35-104) Alt 24 U/L (0-33) Estimated GFR Creatinine 89 ML/MIN/1.73M 2 4 Complete Abc With Diff 06/03/2023 [facility] WBC 7.8 K/MM3 (4.0-11. 0) RBC 4.79 M/MM3 (4.20-5. 40) HGB 14.0 GM/DL (11.7-15 .5) HCT 45.0 % (35.7-45 .8) MCV 93.9 FL (80.0-10 0.0) MCH 29.2 pg (27.0-34 .0) MCHC 31.1 g/dL Low (33.0-37 .0) PLT 255 K/MM3 (150-460 ) RDW-SD 46.5 FL (<47.0) MPV 10.9 FL (9.4-12. 4) Automated NRBC 0.0 #/100WBC'S Abs. NRBC 0.0 K/MM3 Neut # 5.3 K/MM3 (1.3-7.0 ) Lymph # 1.6 K/MM3 (0.8-3.1 ) [place]# 0.7 K/MM3 (0.4-0.9 ) Eo # 0.1 K/MM3 (0.0-0.4 ) Baso # 0.1 K/MM3 (0.0-0.1 ) Abs. Imm Gran 0.0 K/MM3 Neut 68.1 % (44-76) Lymph 20.0 % (15-43) Monocyte 9.0 % (4.5-10. 5) Eo 1.7 % (0-6) Baso 0.8 % (0-2) Imm Gran 0.4 % Hemoglobin A1c 03/04/2023 Inhouse Hemoglobin A1c 149 Glucose Fingerstick 03/04/2023 Inhouse Glucose Fingerstick 7.2% Hepatic Function Panel 03/02/2023 [facility] Bilirubin,Total 0.5 mg/dL (0-1.2) Bilirubin, Direct <0.2 mg/dL (0-0.3) Indirect Bilirubin Direct bilirubin <SEE NOTE> mg/dL (0.0-0.7 ) 5 Albumin 4.8 GM/DL (3.4-4.8 ) Ast 33 U/L High (0-32) Alt 26 U/L (0-33) Alk Phos 63 U/L (35-104) Total Protein 7.5 GM/DL (6.2-8.2 ) Lipid Panel 03/02/2023 [facility] Cholesterol, Total 137 mg/dL (<200) Triglyceride 145 mg/dL (<150) HDL Chol 36 mg/dL Low (>39) LDL Cholesterol, Calculated 72 mg/dL (0-130) Non HDL Cholesterol (Calc) 101 mg/dL (<160) Lipid Panel 11/05/2022 [facility] Cholesterol, Total 233 mg/dL High (<200) Triglyceride 253 mg/dL High (<150) HDL Chol 42 mg/dL (>39) LDL Cholesterol, Calculated 140 mg/dL High (0-130) Non HDL Cholesterol (Calc) 191 mg/dL High (<160) Glucose Fingerstick 11/05/2022 Inhouse Glucose Fingerstick 154 Urinary Microalbumin 11/05/2022 [facility] Micro-Albumin <12.0 mg/L (<20) 6 Malb/Creat Ratio Unable to calcul <SEE NOTE> MG/GM (0-20) 7 Urine Creat For Micro Albumin 45.9 mg/dL Hemoglobin A1c 11/05/2022 [facility] Hemoglobin A1c 7.6 % High (4.0-5.6 ) 8 Comprehensive Metabolic Panl 07/17/2022 [facility] Glucose 128 mg/dL High (70-99) BUN 15 mg/dL (8-23) Creatinine 0.7 mg/dL (0.5-1.0 ) Sodium 140 mmol/L (133-145 ) Potassium 4.8 mmol/L (3.6-5.2 ) Chloride 102 mmol/L (98-107) Bicarbonate 26 mmol/L (22-29) Anion Gap 12 (4-17) Albumin 4.5 GM/DL (3.4-4.8 ) Calcium 10.2 mg/dL (8.6-10. 5) Bilirubin,Total 0.4 mg/dL (0-1.2 ) Total Protein 7.0 GM/DL (6.2-8.2 ) Ag Ratio 1.8 Ast 31 U/L (0-32) Alk Phos 59 U/L (35-104) Alt 27 U/L (0-33) Estimated GFR Creatinine 92 ML/MIN/1.73M 2 9 Complete Abc With Diff 07/17/2022 [facility] WBC 6.4 K/MM3 (4.0-11. 0) RBC 4.51 M/MM3 (4.20-5. 40) 10 HGB 13.2 GM/DL (11.7-15 .5) HCT 42.1 % (35.7-45 .8) MCV 93.3 FL (80.0-10 0.0) 11 MCH 29.3 pg (27.0-34 .0) MCHC 31.4 g/dL Low (33.0-37 .0) PLT 326 K/MM3 (150-460 ) RDW-SD 50.1 FL High (<47.0) MPV 10.6 FL (9.4-12. 4) Automated NRBC 0.0 #/100WBC'S Abs. NRBC 0.0 K/MM3 Neut # 4.3 K/MM3 (1.3-7.0 ) Lymph # 1.5 K/MM3 (0.8-3.1 ) [place]# 0.6 K/MM3 (0.4-0.9 ) Eo # 0.1 K/MM3 (0.0-0.4 ) Baso # 0.1 K/MM3 (0.0-0.1 ) Abs. Imm Gran 0.0 K/MM3 Neut 66.5 % (44-76) Lymph 22.7 % (15-43) Monocyte 8.6 % (4.5-10. 5) Eo 1.1 % (0-6) Baso 0.8 % (0-2) Imm Gran 0.3 % Ferritin 07/17/2022 [facility] Ferritin 42 NG/ML (14-283) Hemoglobin A1c 07/17/2022 Inhouse Hemoglobin A1c 6.1% Glucose Fingerstick 07/17/2022 Inhouse Glucose Fingerstick 166 1 The N-telopeptide an d Creatinine are used to calculate the N-telo/Creat. Ratio which is referred to as NTx . Suggested guidelines for the clinical use of NTx are as follows: 1. Menopausal Women not on Hormone Replacement Therapy (HRT): Women with a baseline NTx value >38 are at significant risk for a decrease in bone mineral density (BMD) after 1 year compared to women on HRT. The probability of a decline in BMD increases with NTx value as follows: (1): Baseline NTx Probability of Decrease in BMD 18- 38 1.4 p=0.28 38- 51 2.5 p=0.03 51- 67 3.8 p=0.0006 67-188 17.3 p=0.0001 2. Menopausal Women Receiving Antiresorptive Therapy: The probability that treatment is effective after three months is increased when the measured NTx value is <or=38 nM BCE/mM SIGNALS INTELLIGENCE SUPERINTENDENT, or NTx has decreased >or=30% from baseline.[1] 3. Patients with Paget's Disease of Bone: The probability that treatment is effective after one month is increased when the measured NTx value is within the reference range, or NTx has decreased >or=30% from baseline.[2] 1. Galina CH, Mari NH, Cecilio GS, et al. Am J Med, 102:29-37,1997. (1):M757, 1996. 2. Bone H, Marcus J, et al. J Bone Min Res.11(1):M757,1995 2 Normal: 0 - 29 Moderately increased: 30 - 300 Severely increased: >300 3 Creatinine based est imated glomerular filtration (eGFR) in adults is calculated using the National Kidney Foundation recommended 2021 CKD-EPI equation. Estimates GFR from serum creatinine, age and sex. 4 Creatinine based est imated glomerular filtration (eGFR) in adults is calculated using the National Kidney Foundation recommended 202 CKD-EPI equation. Estimates GFR from serum creatinine, age and sex. 5 Direct bilirubin is less than the measureable limit. Therefore, indirect bilirubin cannot be calculated. 6 The urine microalbum in test is designed to monitor renal function. When screening for Bence Stallworth proteinuria, urine electrophoresis is recommended. 7 Unable to calculate 8 MONITORING: In known diabetic patients, hemoglobin A1c targets should be discussed with health care provider. DIAGNOSTIC USE: The [place] Diabetes Association (ADA) and the World Health Organization (WHO) recommend the use of HbA1c to diagnose diabetes using a threshold of 6.5%. Patients who have an HbA1c between 5.7% and 6.4% are considered at increased risk for developing diabetes in the future. CAUTION: Falsely low HbA1c results may be observed in patients with hemolytic anemia, homozygous forms of abnormal hemoglobin (e.g. SS, CC, SC), , recent blood loss or hemoglobin F greater than 7%. Fructosamine may be used as an alternate test in these cases. REFERENCE: ADA: Standards of Medical Care in Diabetes 2020, The Journal of Clinical and Applied Research and Education Volume 43, Supplement 1 9 Creatinine based est imated glomerular filtration (eGFR) in adults is calculated using the National Kidney Foundation recommended 2021 CKD-EPI equation. Estimates GFR from serum creatinine, age and sex. 10 Results checked 11 Specimen label check ed Procedures Date Code Description Status 01/27/2025 83940 Collection Of Venous Blood B y Venipuncture Completed 10/08/2023 74287 Collection Of Venous Blood B y Venipuncture Completed 06/03/2023 10137 Collection Of Venous Blood B y Venipuncture Completed 11/05/2022 43929 Collection Of Venous Blood B y Venipuncture Completed 07/17/2022 26106 Collection Of Venous Blood B y Venipuncture Completed Medical Devices Description No Information Available Encounters Type Date Location Provider Dx Diagnosis Office Visit 01/27/2025 9:15a Main Office Rema Fong M.D. E11.9 Type 2 diabetes mellitus without complications I25.10 Athscl heart disease of [place] coronary artery w/o ang pctrs I48.3 Typical atrial flutt er I42.0 Dilated cardiomyopat hy I10 Essential (primary) hypertension I21.4 Non-St elevation (Ns carlotta) myocardial infarction Assessments Date Code Description Provider 01/27/2025 E11.9 Type 2 diabetes mellitus without complications Rema Fong M.D. 01/27/2025 I25.10 Atherosclerotic heart disease of [place] coronary artery without angina pectoris Rema Fong M.D. 01/27/2025 I48.3 Typical atrial flutter Pancho Fong M.D. 01/27/2025 I42.0 Dilated cardiomyopathy Pancho Fong M.D. 01/27/2025 I10 Essential (primary) hyperten ankur Rema Fong M.D. 01/27/2025 I21.4 Non-St elevation (Nstemi) myocardial infarction Rema Fong M.D. Plan of Treatment Future Appointment(s):* 03/31/2025 10:30 am - Rema Fong M.D. at Main Office 01/27/2025 - Rema Fong M.D.* E11.9 Type 2 diabetes mellitus without complications * I25.10 Atherosclerotic heart disease of [place] coronary artery without angina pectoris * I48.3 Typical atrial flutter * I42.0 Dilated cardiomyopathy * I10 Essential (primary) hypertension * I21.4 Non-St elevation (Nstemi) myocardial infarction Functional Status Description No Information Available Mental Status Description No Information Available Referrals Refer to Dr Reason for Referral Status Appt George e Patient Declined Patient Declined Rema Fong M.D. Sent [address] [place] [address] Drive [address] [place] [address] [phone] Atriel Flutter and Cardiomyopathy Reviewe d Partial [facility] CHRONIC LEFT NECK PAIN Closed 12/07/[address] [place] [address] [phone]
--- OUTSIDE RECORDS SUMMARY | 2025-02-09 16:11 | XMS_ITS | Clinical Summary ---
Author Organization [facility] Address [address] [address] Phone Care Team Providers Care Vice President Network Development Name Role Phone Rema Fong MD Primary Care Provid er Encounters Date Type Department Care Team Description 02/02/[address] [place] [address] Rema Fong MD from Last 3 Months Social History Tobacco Use Types Packs/Day Years Used Date Smoking Tobacco: Never Assessed Comments Unknown Sex and Gender Information Value Date Recorded Sex Assigned at Not on file Legal Sex Female 8:31 PM EST Gender Identity Not on file Sexual Orientation Not on file Plan of Treatment Health Maintenance Due Date Last Done Comments DTaP,Tdap,and Td Vaccines (1 - Tdap) 1968 Pneumococcal Vaccine: 50+ Ye ars (1 of 1 - PCV) 1999 Zoster Vaccines (1 of 2) 1999 Depression Screening 12/20/2023 Falls Risk Assessment 12/20/2023 Hepatitis C Screening 12/20/2023 Medicare Annual Wellness Visit 12/20/2023 Osteoporosis Screening (Bone Density Screening) 12/20/2023 Social Influencers of Health Screening 12/20/2023 RSV Immunization Patients 60 + Years Old (1 - 1-dose 75+ series) 2024 COVID-19 Vaccine ( - 2023-2 5 season) 2024 Influenza Vaccine (#1) 2024 HIB Vaccines Aged Out No longer eligi ble based on patient's age to complete this topic HPV Vaccines Aged Out No longer eligi ble based on patient's age to complete this topic Hepatitis A Vaccines Aged Out No long er eligible based on patient's age to complete this topic Hepatitis B Vaccines Aged Out No long er eligible based on patient's age to complete this topic IPV Vaccines Aged Out No longer eligi ble based on patient's age to complete this topic MMR Vaccines Aged Out No longer eligi ble based on patient's age to complete this topic Meningococcal ACWY Vaccine Aged Out N o longer eligible based on patient's age to complete this topic Meningococcal B Vacine Aged Out No lo nger eligible based on patient's age to complete this topic RSV Immunization Patients Un vikas 20 months Aged Out No longer eligible b ased on patient's age to complete this topic Varicella Vaccines Aged Out No longer eligible based on patient's age to complete this topic Insurance MEDICARE Care Teams Vice President Network Development Relationship Specialty Start Date End Date Rema Fong MD [address] [place] [address] Dr [address] [place] [id number] PCP - General Endocrinology 02/02/25
== END 2025-02-09 15:03 | disposition home or self-care (01) ==
LOC: HO.HCS 13:42
PROVIDERS: PCP Internal Medicine Endocrinology, Diabetes & Metabolism; Visit Provider Nurse Practitioner Family
DX: I48.92 Unspecified atrial flutter (principal); I42.9 Cardiomyopathy, unspecified; I21.4 Non-ST elevation (NSTEMI) myocardial infarction; I44.7 Left bundle-branch block, unspecified; Z98.890 Other specified postprocedural states; I10 Essential (primary) hypertension; E78.5 Hyperlipidemia, unspecified; Z09 Encounter for follow-up examination after completed treatment for conditions other than malignant neoplasm
CPT/HCPCS: 93010; 99215; G2211

== ENCOUNTER → 2025-02-09 13:42 | Outpatient (BNVA) | payer MEDICARE, SELFPAY | PROVIDERS: PCP Internal Medicine Endocrinology, Diabetes & Metabolism; Visit Provider Nurse Practitioner Family | DX: I10 Essential (primary) hypertension (principal); I25.2 Old myocardial infarction; I44.7 Left bundle-branch block, unspecified; I48.92 Unspecified atrial flutter; I42.9 Cardiomyopathy, unspecified; E78.5 Hyperlipidemia, unspecified; Z09 Encounter for follow-up examination after completed treatment for conditions other than malignant neoplasm; Z98.890 Other specified postprocedural states | CPT/HCPCS: 93005; 99212 ==

== ENCOUNTER → 2025-02-26 08:46 | Outpatient (REF) | payer MEDICARE, SELFPAY ==
--- NOTE | 2025-02-26 08:51 | CA_ITS ---
Transthoracic Echocardiogram Patient (Last, First, Middle): Flor Guzman, Gender: Female Date of : 1950 Age: 75 Procedure Date: 02/26/2025 Procedure Type: Transthoracic Echocardiogram Location: OP Height: 157.48 cm Weight: 68.04 kg BSA: 1.69 m2 Heart Rate: bpm BP: 108 / 64 mmHg Retail Sales Lead: TO Referring MD: Paty Mosley TENSIONING MACHINE OPERATORLanie Symptoms: I42.9 - Cardiomyopathy, unspecified Study Quality: Adequate w contrast ECG Rhythm: Sinus Conclusions: - The left ventricular systolic function is severely decreased. The calculated ejection fraction is 26% by biplane method. Findings Procedure Information Contrast agent, definity, is being given per protocol without apparent complications. Left Ventricle Mildly increased left ventricular cavity size. The left ventricular systolic function is severely decreased. The calculated ejection fraction is 26% by biplane method. There is severe global hypokinesis. Prior Study Comparison Changes noted compared to prior study dated: 01/16/2025. LVEF slightly higher. Measurements 2D Linear Measurements LVOT Diam: 1.90 3.0+(-)1.3 cm 2D Systolic Function EF 4C: 25.00 >55% EF 2C: 28.00 >55% EF BiP: 26.20 >55% LVOT LVOT Pk Alfred: 0.70 LVOT Mn Alfred: 0.44 LVOT VTI: 0.14 LVOT Pk Grad: 2.00 LVOT Mn Grad: 1.00 LVOT Diam: 1.90 LVOT Area: 2.84 Tricuspid Valve RA Press: 3.00 Updated in Other Vendor System with Status of Final Daniel Tinoco MD electronically signed on 02/27/2025 11:36:40 AM with status of Final
--- OUTSIDE RECORDS SUMMARY | 2025-02-26 09:15 | XMS_ITS | Continuity of Care Document ---
Author Organization [facility] [address] [place] [address] Phone [phone] Care Team Providers Care High School Combination Teacher Name Role Phone Rema Fong M.D. Care Team Informati on Information Systems Coordinator [phone] Problems Active Problems Provider Date Essential hypertension [...] SIG Qnty Indications Order ing Provider Date Ywomglgsj69cy Tablets take 1 tablet by mouth once daily 90tabs Rema Fong M.D. 06/03/2023 Paroxetine TIZ63ut Tablets Take 1 Tablet Once Daily 90tabs Rema Fong M.D. 01/22/2023 Accu-Chek Joyce PlusStrips Use To Test Twice A Day 200units E11.9 Rema Fong M.D. 12/27/2022 Metformin HCL RO835rl Tablets ER 24HR Take 2 Tablets Once Daily 180tabs Rema Fong M.D. 11/06/2022 Glipizide ER10mg Tablets ER 24HR Take 2 Tablets Every Morning 180taveronica Fong M.D. Bisoprolol Rgialvyg3gi Tablets take 1 tablet by mouth daily 90tabs Rema Fong M.D. Vitamin Y009ccb (2000 Ut) Capsules 1 by mouth every day Rema Fong M.D. Calcium 500+B1721-984or-Iuxk Tablets 1 by mouth every day Rema Fong M.D. Vitamin [id number] Tablets ER 1 by mouth every day Rema Fong M.D. Yynbjn31vd Capsules DR fox Fong M.D. Amiodarone OST642tu Tablets Take 1 Tablet By Mouth Once A Day 90taveronica Fong M.D. Yhgndyt8sp Tablets Take 1 Tablet By Mouth Two Times A Day. 180taveronica Fong M.D. Aspirin Adult Low Qiak02ys Tablets DR 1 by mouth every day Unknown Atorvastatin Pussgsc31dr Tablets Take 1 Tablet By Mouth Every Day AT Bedtime. 90taveronica Fong M.D. Rjpdstoapsiyqx46pn Tablets Take 1 Tablet By Mouth Every Day. 90taveronica Fong M.D. Ikbcnhvzv05ey Tablets Take 1 Tablet By Mouth Every [...] 1.4-7.0 Lymphs (Absolute) 1.2 x10E3/uL 0.7-3.1 Monocytes(Absol akiak) 0.6 x10E3/uL 0.1-0.9 Eos (Absolute) 0.1 x10E3/uL [...] Glucose Fingerstick 166 Comprehensive Metabolic Panl 10/08/2023 [facility] Glucose 99 mg/dL (70-99) [...] Hemoglobin A1c 7.4% Comprehensive Metabolic Panl 06/03/2023 [facility] Glucose 161 mg/dL High [...] 2 4 Complete Abc With Diff 06/03/2023 [facility] WBC 7.8 K/MM3 (4.0-11. [...] ) Lymph # 1.6 K/MM3 (0.8-3.1 ) [place]# 0.7 K/MM3 (0.4-0.9 ) Eo # 0.1 [...] Glucose Fingerstick 7.2% Hepatic Function Panel 03/02/2023 [facility] Bilirubin,Total 0.5 mg/dL (0-1.2) Bilirubin, Direct <0.2 mg/dL (0-0.3) Indirect Bilirubin Direct bilirubin <SEE NOTE> mg/dL (0.0-0.7 ) 5 Albumin 4.8 GM/DL (3.4-4.8 ) Ast 33 U/L High (0-32) Alt 26 U/L (0-33) Alk Phos 63 U/L (35-104) Total Protein 7.5 GM/DL (6.2-8.2 ) Lipid Panel 03/02/2023 [facility] Cholesterol, Total 137 mg/dL (<200) Triglyceride 145 mg/dL (<150) HDL Chol 36 mg/dL Low (>39) LDL Cholesterol, Calculated 72 mg/dL (0-130) Non HDL Cholesterol (Calc) 101 mg/dL (<160) Lipid Panel 11/05/2022 [facility] Cholesterol, Total 233 mg/dL High (<200) Triglyceride 253 mg/dL High (<150) HDL Chol 42 mg/dL (>39) LDL Cholesterol, Calculated 140 mg/dL High (0-130) Non HDL Cholesterol (Calc) 191 mg/dL High (<160) Glucose Fingerstick 11/05/2022 Inhouse Glucose Fingerstick 154 Urinary Microalbumin 11/05/2022 [facility] Micro-Albumin <12.0 mg/L (<20) 6 Malb/Creat Ratio Unable to calcul <SEE NOTE> MG/GM (0-20) 7 Urine Creat For Micro Albumin 45.9 mg/dL Hemoglobin A1c 11/05/2022 [facility] Hemoglobin A1c 7.6 % High (4.0-5.6 ) 8 Comprehensive Metabolic Panl 07/17/2022 [facility] Glucose 128 mg/dL High [...] 2 9 Complete Abc With Diff 07/17/2022 [facility] WBC 6.4 K/MM3 (4.0-11. [...] ) Lymph # 1.5 K/MM3 (0.8-3.1 ) [place]# 0.6 K/MM3 (0.4-0.9 ) Eo # 0.1 K/MM3 (0.0-0.4 ) Baso # 0.1 K/MM3 (0.0-0.1 ) Abs. Imm Gran 0.0 K/MM3 Neut 66.5 % (44-76) Lymph 22.7 % (15-43) Monocyte 8.6 % (4.5-10. 5) Eo 1.1 % (0-6) Baso 0.8 % (0-2) Imm Gran 0.3 % Ferritin 07/17/2022 [facility] Ferritin 42 NG/ML (14-283) [...] measured NTx value is <or=38 nM BCE/mM SENIOR STAFF CONSULTANT, or NTx has decreased >or=30% from baseline.[1] [...] with health care provider. DIAGNOSTIC USE: The [place] Diabetes Association (ADA) and the World Health [...] ed Procedures Date Code Description Status 01/27/2025 04803 Collection Of Venous Blood B y Venipuncture Completed 10/08/2023 37202 Collection Of Venous Blood B y Venipuncture Completed 06/03/2023 25151 Collection Of Venous Blood B y Venipuncture Completed 11/05/2022 17270 Collection Of Venous Blood B y Venipuncture Completed 07/17/2022 72049 Collection Of Venous Blood B y Venipuncture Completed Medical Devices Description No Information Available Encounters Type Date Location Provider Dx Diagnosis Office Visit 02/25/2025 10:16a Main Office Rema Fong M.D. E11.9 Type 2 diabetes mellitus without complications E78.00 Pure hypercholestero lemia, unspecified Assessments Date Code Description Provider 02/25/2025 E11.9 Type 2 diabetes mellitus without complications Rema Fong M.D. 02/25/2025 E78.00 Pure hypercholesterolemia, u nspecified Rema Fong M.D. Plan of Treatment Future Appointment(s):* 03/31/2025 10:30 am - Rema Fong M.D. 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 * I48.3 Typical atrial flutter * I42.0 Dilated cardiomyopathy * I10 Essential (primary) hypertension * I21.4 Non-St elevation (Nstemi) myocardial infarction Functional Status Description No Information Available Mental Status Description No Information Available Referrals Refer to Reason for Referral Status Appt George e Patient Declined Patient Declined [place] [facility] CARDIOLOGY Closed [address] [place] [address] [phone] Atriel Flutter and Cardiomyopathy Patient Declined [facility] CHRONIC LEFT NECK PAIN Closed 12/07/2022 [address] [place] [address] [phone]
--- OUTSIDE RECORDS SUMMARY | 2025-02-26 09:15 | XMS_ITS | Clinical Summary ---
Author Organization [facility] Address [address] [place] [address] Phone Care Team Providers Care Archeologist Name Role Phone Rema Fong MD Primary Care Provid er Encounters Date Type Department Care Team Description 02/02/[address] [place] [address] Rema Fong MD from Last 3 [...] Influencers of Health Screening 12/20/2023 RSV Immunization Adult Patie nts (1 - 1-dose 75+ series) 2024 COVID-19 Vaccine (2023-2 5 season) 2024 Influenza Vaccine (#1) 2024 [...] complete this topic Insurance MEDICARE Care Teams Archeologist Relationship Specialty Start Date End Date Rema Fong MD [address] [place] [address] Dr [address] [place] [address] PCP - General Endocrinology 02/02/25
== END ==
LOC: HO.CARD 08:46
PROVIDERS: PCP Internal Medicine Endocrinology, Diabetes & Metabolism; Visit Provider Nurse Practitioner Family
DX: I42.9 Cardiomyopathy, unspecified (principal); I44.7 Left bundle-branch block, unspecified
CPT/HCPCS: 93308; Q9957

== ENCOUNTER → 2025-02-26 08:51 | Outpatient (BNV) | payer MEDICARE, SELFPAY | PROVIDERS: PCP Internal Medicine Endocrinology, Diabetes & Metabolism; Visit Provider Internal Medicine | DX: I50.20 Unspecified systolic (congestive) heart failure (principal) | CPT/HCPCS: 93308 ==

== ENCOUNTER 2025-03-11 11:07 | Outpatient (AMB) | payer MEDICARE, SELFPAY ==
--- NOTE | 2025-03-11 11:11 | MHC.OFFVIS ---
Vital Signs 03/11/25 11:13 Height 5 ft 2 in Weight 151 lb 3.794 oz BMI 27.7 BP 110/62 Blood Pressure Location Lt brachial Position Sitting Pulse 62 Pulse Source Monitor Intake Visit Reasons: 5 wk s/p echo Sanitation Tank Washer Required: No Accompanied by: Self / Same As Patient Allergies No Known Allergies Allergy (Verified 02/09/25 13:50) Medication List - Last Reconciled 03/11/25 by Daniel Tinoco MD amiodarone 200 mg PO DAILY apixaban (Eliquis) 5 mg PO BID aspirin 81 mg PO DAILY atorvastatin 80 mg PO BEDTIME bisoprolol fumarate 5 mg DAILY empagliflozin (Jardiance) 10 mg PO DAILY glipizide ER 20 mg PO QAM metformin ER 1,000 mg PO QPM paroxetine HCl 20 mg PO DAILY sacubitril-valsartan 24-26 mg (Entresto) 1 tab PO BID 30 days spironolactone 25 mg PO DAILY HPI Comments Details: Flor returns for follow-up after recent hospitalization. She was seen in the ER and consultation. She essentially came for a rapid heart rate after shoveling snow. Was found to be in a wide complex tachycardia, thought to be atrial flutter with rapid rate. Then converted to sinus. Echocardiogram had shown severe LV dysfunction. Transferred to [facility] where she was seen by EP. Underwent diagnostic catheterization. Had diffuse CAD but medically managed. Overall, she states she generally feels okay. No acute cardiac concerns. No ongoing angina or any other major symptoms. [facility] Medical History (Updated 03/11/25 @ 11:20 by Daniel Tinoco MD) Breast cancer Hyperlipidemia, unspecified Essential hypertension Diabetes mellitus Surgical History Hx of cardiac cath Hx of cholecystectomy H/O mastectomy Family History Father Heart valve replaced Social History Household Members: Spouse Housing: House Do you presently have visiting nurse or other home services: No Patient Tobacco Use Status: Never used Tobacco service: No Review of Systems Const Denies chills, Denies fatigue, Denies fever(s), Denies frequent falls, Denies weakness, Denies weight gain and Denies weight loss ENT Denies dizziness Card Denies chest pain, Denies leg edema, Denies lightheadedness, Denies palpitations, Denies dyspnea and Denies dyspnea on exertion Resp Denies cough, Denies dyspnea and Denies dyspnea on exertion GI Denies hematochezia Musc Denies abnormal gait, Denies muscle weakness, Denies numbness, Denies radiating pain into limb and Denies tingling Neuro Denies abnormal gait, Denies dizziness, Denies frequent falls, Denies numbness, Denies tingling and Denies weakness Endo Denies fatigue and Denies palpitations Physical Exam Vital Signs: Last Vital Signs Pulse 62 03/11/25 11:13 BP 110/62 03/11/25 11:13 BMI result Body Mass Index 27.7 Const General: comfortable and no acute distress Orientation/consciousness: patient oriented x3 HEENT Other: Unremarkable Head: Yes normal to inspection Neck Neck: Yes normal visual inspection Chest Chest palpation & inspection: normal inspection of the chest Resp Auscultation: clear to auscultation bilaterally Cardio Palpation: normal PMI Heart sounds: S1 normal heart sound present, S2 normal heart sound present, no gallops, no murmurs and no rubs GI Palpation (GI): Soft to palpation Back/Spine/Pelvis Other: unremarkable Skin General skin exam: no rashes or lesions noted Neuro General: patient oriented x3 Extrem General: Yes normal to inspection Psych Mental Status: mental status grossly normal Office Procedures EKG Details: EKG with sinus rhythm at 62/Min; nonspecific intraventricular conduction defect; inferior and anterolateral ST depression. 39477-Vfitjwvhsbyqzopzy, Complete Assessment & Plan Assessment & Plan (1) Atrial flutter with rapid ventricular response: Code(s): I48.92 - Unspecified atrial flutter Category: Medical Plan: We will need to follow up with EP. Suspect we will need atrial flutter ablation and then we could probably stop the amiodarone. Continue with anticoagulation. (2) Cardiomyopathy: Code(s): I42.9 - Cardiomyopathy, unspecified Category: Medical Plan: Echocardiogram from December, LVEF 10-15%. Repeat echocardiogram from this February, LVEF 26%. In the cardiac MRI, LVEF 28%. Subendocardial infarct in the basal to mid lateral wall. 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 She is on bisoprolol, Entresto, spironolactone, Jardiance. Continue. No overt heart failure symptoms or signs. EP to see for question of ICD placement. (3) Left bundle branch block: Code(s): I44.7 - Left bundle-branch block, unspecified Category: Medical Plan: Plan as above. (4) Atherosclerotic cardiovascular disease: Code(s): I25.10 - Atherosclerotic heart disease of [place] coronary artery without angina pectoris Category: Medical Plan: Cardiac catheterization with diffuse multivessel disease. Medically treated. Continue statins. We may have to get the cholesterol levels from her PCP. Plan Message sent to Juan Manuel Hall/Mekhi Ybarra, EP team for arranging follow up. Discussion Notes During the consultation, I informed the patient about the significance of atrial flutter's contribution to cardiac inefficiency and the need for further arrhythmic control, specifically through potential ablation. The benefits, including rhythm normalization and symptom reduction, were discussed alongside potential risks associated with the procedure. We deliberated on next steps in collaboration with her android ios developer, who will further assess candidacy for this intervention. Ongoing management of hyperlipidemia and statin adjustments were reviewed, emphasizing monitoring with both primary care and cardiac specialists. Rehabilitation therapy options were introduced, guided by my reassurance for gradual exercise under professional supervision, ensuring safety amid exertional limitations. The patient expressed understanding and concordance with the outlined follow-up strategy. Patient was informed and verbally consented to the use of an ambient scribe for clinic note documentation during this visit. Patient Instructions: - Follow your current medication regimen as prescribed. - Continue regular consultations with your primary care for cholesterol management. - Engage in light physical activities; no heavy shoveling or digging in the garden. - Enroll in a cardiac rehabilitation program, ensuring supervised exercise. - Await further information regarding your ablation procedure appointment. - Monitor for symptoms like chest pain or excessive fatigue and report them immediately. - Keep scheduled follow-up appointments for ongoing cardiac assessments. Coding Level of Care Code Est Pt Level 4 (66244) Complex EM visit Add On G2211 Diagnoses Atrial flutter with rapid ventricular response I48.92 Cardiomyopathy I42.9 Left bundle branch block I44.7 Atherosclerotic cardiovascular disease I25.10 CPT Codes EKG - CPT: 39620-Ruxzbhzqcrninfypx, Complete ([id number])
[2025-03-11 11:13] VITALS: BP 110/62; PULSE 62; BMI 27.7
--- OUTSIDE RECORDS SUMMARY | 2025-03-11 13:40 | XMS_ITS | Continuity of Care Document ---
Author Organization [facility] [address] [facility] [address] [place] [address] Phone [phone] Care Team Providers Care Search Engine Optimization Strategist Name Role Phone Rema Fong M.D. Care Team Informati on Recycling Assistant [phone] Problems Active Problems Provider Date Essential hypertension [...] SIG Qnty Indications Order ing Provider Date Buqybpppo81lg Tablets take 1 tablet by mouth once daily 90tabs Rema Fong M.D. 06/03/2023 Paroxetine JTS41ry Tablets Take 1 Tablet Once Daily 90tabs Rema Fnog M.D. 01/22/2023 Accu-Chek Joyce PlusStrips Use To Test Twice A Day 200units E11.9 Rema Fong M.D. 12/27/2022 Metformin HCL EI144tt Tablets ER 24HR Take 2 Tablets By Mouth Once Daily 180tabs Rema Fong M.D. 11/06/2022 Glipizide ER10mg Tablets ER 24HR Take 2 Tablets By Mouth Every Morning 180taveronica Fong M.D. Bisoprolol Ksqeuqkf4qx Tablets take 1 tablet by mouth daily 90tabs Rema Fong M.D. Vitamin R973kyp (2000 Ut) Capsules 1 by mouth every day Rema Fong M.D. Calcium 500+K1612-044fd-Pwag Tablets 1 by mouth every day Rema Fong M.D. Vitamin T868779xcn Tablets ER 1 by mouth every day Rema Fong M.D. Agiodt86en Capsules DR fox Fong M.D. Amiodarone GIX110ra Tablets Take 1 Tablet By Mouth Once A Day 90taveronica Fong M.D. Mghjgye6wy Tablets Take 1 Tablet By Mouth Two Times A Day. 180taveronica Fong M.D. Aspirin Adult Low Joxa25sh Tablets DR 1 by mouth every day Unknown Atorvastatin Ljlzvcm11qy Tablets Take 1 Tablet By Mouth Every Day AT Bedtime. 90christiana Fong M.D. Ihiqbvrcpfsnxc87xk Tablets Take 1 Tablet By Mouth Every Day. 90taveronica Fong M.D. Yrjdeftzm19lm Tablets Take 1 Tablet By Mouth Every Day. destinee Fong M.D. Vital Signs Date Vital Result [...] 1.4-7.0 Lymphs (Absolute) 1.2 x10E3/uL 0.7-3.1 Monocytes(Absol robinson) 0.6 x10E3/uL 0.1-0.9 Eos (Absolute) 0.1 x10E3/uL [...] Glucose Fingerstick 166 Comprehensive Metabolic Panl 10/08/2023 [facility] Glucose 99 mg/dL (70-99) [...] Hemoglobin A1c 7.4% Comprehensive Metabolic Panl 06/03/2023 [facility] Glucose 161 mg/dL High [...] 2 4 Complete Abc With Diff 06/03/2023 [facility] WBC 7.8 K/MM3 (4.0-11. [...] ) Lymph # 1.6 K/MM3 (0.8-3.1 ) [place]# 0.7 K/MM3 (0.4-0.9 ) Eo # 0.1 [...] Glucose Fingerstick 7.2% Hepatic Function Panel 03/02/2023 [facility] Bilirubin,Total 0.5 mg/dL (0-1.2) Bilirubin, Direct <0.2 mg/dL (0-0.3) Indirect Bilirubin Direct bilirubin <SEE NOTE> mg/dL (0.0-0.7 ) 5 Albumin 4.8 GM/DL (3.4-4.8 ) Ast 33 U/L High (0-32) Alt 26 U/L (0-33) Alk Phos 63 U/L (35-104) Total Protein 7.5 GM/DL (6.2-8.2 ) Lipid Panel 03/02/2023 [facility] Cholesterol, Total 137 mg/dL (<200) Triglyceride 145 mg/dL (<150) HDL Chol 36 mg/dL Low (>39) LDL Cholesterol, Calculated 72 mg/dL (0-130) Non HDL Cholesterol (Calc) 101 mg/dL (<160) Lipid Panel 11/05/2022 [facility] Cholesterol, Total 233 mg/dL High (<200) Triglyceride 253 mg/dL High (<150) HDL Chol 42 mg/dL (>39) LDL Cholesterol, Calculated 140 mg/dL High (0-130) Non HDL Cholesterol (Calc) 191 mg/dL High (<160) Glucose Fingerstick 11/05/2022 Inhouse Glucose Fingerstick 154 Urinary Microalbumin 11/05/2022 [facility] Micro-Albumin <12.0 mg/L (<20) 6 Malb/Creat Ratio Unable to calcul <SEE NOTE> MG/GM (0-20) 7 Urine Creat For Micro Albumin 45.9 mg/dL Hemoglobin A1c 11/05/2022 [facility] Hemoglobin A1c 7.6 % High (4.0-5.6 ) 8 Comprehensive Metabolic Panl 07/17/2022 [facility] Glucose 128 mg/dL High [...] 2 9 Complete Abc With Diff 07/17/2022 [facility] WBC 6.4 K/MM3 (4.0-11. [...] ) Lymph # 1.5 K/MM3 (0.8-3.1 ) [place]# 0.6 K/MM3 (0.4-0.9 ) Eo # 0.1 K/MM3 (0.0-0.4 ) Baso # 0.1 K/MM3 (0.0-0.1 ) Abs. Imm Gran 0.0 K/MM3 Neut 66.5 % (44-76) Lymph 22.7 % (15-43) Monocyte 8.6 % (4.5-10. 5) Eo 1.1 % (0-6) Baso 0.8 % (0-2) Imm Gran 0.3 % Ferritin 07/17/2022 [facility] Ferritin 42 NG/ML (14-283) [...] measured NTx value is <or=38 nM BCE/mM SLOT ATTENDANT, or NTx has decreased >or=30% from baseline.[1] 3. Patients with Paget's Disease of Bone: The probability that treatment is effective after one month is increased when the measured NTx value is within the reference range, or NTx has decreased >or=30% from baseline.[2] 1. Galina CH, Mari NH, Cecilio VIRAMONTES, et al. Am J Med, 102:29-37,1997. (1):M757, [...] calculated using the National Kidney Foundation recommended 2020 CKD-EPI equation. Estimates GFR from serum creatinine, [...] with health care provider. DIAGNOSTIC USE: The [place] Diabetes Association (ADA) and the World Health [...] ed Procedures Date Code Description Status 01/27/2025 42158 Collection Of Venous Blood B y Venipuncture Completed 10/08/2023 90860 Collection Of Venous Blood B y Venipuncture Completed 06/03/2023 86443 Collection Of Venous Blood B y Venipuncture Completed 11/05/2022 63220 Collection Of Venous Blood B y Venipuncture Completed 07/17/2022 14900 Collection Of Venous Blood B y Venipuncture [...] complications * I25.10 Atherosclerotic heart disease of [place] coronary artery without angina pectoris * I48.3 Typical atrial flutter * I42.0 Dilated cardiomyopathy * I10 Essential (primary) hypertension * I21.4 Non-St elevation (Nstemi) myocardial infarction Functional Status Description No Information Available Mental Status Description No Information Available Referrals Refer to Reason for Referral Status Appt George e Patient Declined Patient Declined [facility] CARDIOLOGY Closed [address] [place] [address] [phone] Atriel Flutter and Cardiomyopathy Patient Declined [facility] CHRONIC LEFT NECK PAIN Closed 12/07/[address] [place] [address] [phone]
--- OUTSIDE RECORDS SUMMARY | 2025-03-11 13:40 | XMS_ITS | Clinical Summary ---
Author Organization [facility] Address [address] [place] [address] Phone Care Team Providers Care Frame Expander Name Role Phone Rema Fong MD Primary Care Provid er Encounters Date Type Department Care Team Description 02/02/[address] [place] [address] Rema Fong MD from Last 3 [...] Vaccine (2023-2 5 season) 2024 Influenza Vaccine (Season Ended) 2025 HIB Vaccines Aged Out No longer eligi [...] age to complete this topic Meningococcal B Vaccine Aged Out No l onger eligible based on patient's age to complete this topic RSV Immunization Patients Un vikas 20 months Aged Out No longer eligible b ased on patient's age to complete this topic Varicella Vaccines Aged Out No longer eligible based on patient's age to complete this topic Insurance MEDICARE Care Teams Frame Expander Relationship Specialty Start Date End Date Rema Fong MD [address] [place] [address] Dr [address] [place] [id number] PCP - General Endocrinology 02/02/25
== END 2025-03-11 11:41 | disposition home or self-care (01) ==
PROVIDERS: PCP Internal Medicine Endocrinology, Diabetes & Metabolism; Visit Provider Internal Medicine
DX: I48.92 Unspecified atrial flutter (principal); I42.9 Cardiomyopathy, unspecified; I44.7 Left bundle-branch block, unspecified; I25.10 Atherosclerotic heart disease of native coronary artery without angina pectoris
CPT/HCPCS: 93010; 99214; G2211

== ENCOUNTER → 2025-03-11 11:07 | Outpatient (BNVA) | payer MEDICARE, SELFPAY | PROVIDERS: PCP Internal Medicine Endocrinology, Diabetes & Metabolism; Visit Provider Internal Medicine | DX: I48.92 Unspecified atrial flutter (principal); I42.9 Cardiomyopathy, unspecified; I44.7 Left bundle-branch block, unspecified; I25.10 Atherosclerotic heart disease of native coronary artery without angina pectoris | CPT/HCPCS: 93005; 99212 ==

== ENCOUNTER 2025-06-22 10:12 | Outpatient (AMB) | payer MEDICARE, SELFPAY ==
[2025-06-22 10:15] VITALS: BP 120/62; PULSE 66; BMI 28.2
--- NOTE | 2025-06-22 10:15 | MHC.OFFVIS ---
Vital Signs 06/22/25 10:15 Height 5 ft 2 in Weight 154 lb 5.177 oz BMI 28.2 BP 120/62 Blood Pressure Location Lt brachial Position Sitting Pulse 66 Pulse Source Monitor Intake Visit Reasons: 3m follow up Allergies No Known Allergies Allergy (Verified 02/09/25 13:50) Medication List - Last Reconciled 06/22/25 by Daniel Tinoco MD apixaban (Eliquis) 5 mg PO BID aspirin 81 mg PO DAILY atorvastatin 80 mg PO BEDTIME bisoprolol fumarate 5 mg DAILY empagliflozin (Jardiance) 10 mg PO DAILY glipizide ER 20 mg PO QAM Held on 01/19/25. Instructions: Resume on 01/20/25. [place] [facility] [place] ER 1,000 mg PO QPM Held on 01/19/25. Instructions: Resume on 01/20/25. [place] [facility] [place] paroxetine HCl 20 mg PO DAILY sacubitril-valsartan 24-26 mg (Entresto) 1 tab PO BID 30 days spironolactone 25 mg PO DAILY HPI Comments Details: Flor returns for follow-up regarding various cardiac issues. Essentially, she has got atrial flutter, coronary disease, cardiomyopathy. Recently underwent ablation of atrial flutter/fibrillation. Overall, she states she feels well. No clear-cut cardiac symptoms. [facility] Medical History (Updated 06/22/25 @ 12:23 by Daniel Tinoco MD) Atrial flutter Breast cancer Hyperlipidemia, unspecified Essential hypertension Diabetes mellitus Surgical History Hx of cardiac cath Hx of cholecystectomy H/O mastectomy Family History Father Heart valve replaced Social History Household Members: Spouse Housing: House Do you presently have visiting nurse or other home services: No Patient Tobacco Use Status: Never used Tobacco service: No Review of Systems Const Denies weakness ENT Denies dizziness Card Denies chest pain, Denies chest pain with activity, Denies syncope, Denies rapid heart rate, Denies pedal edema, Denies edema, Denies leg edema, Denies lightheadedness, Denies palpitations, Denies dyspnea, Denies dyspnea on exertion and Denies orthopnea Resp Denies cough, Denies dyspnea and Denies dyspnea on exertion GI Denies hematochezia and Denies change in stool character Musc Denies abnormal gait, Denies muscle cramps, Denies muscle weakness, Denies numbness, Denies radiating pain into limb and Denies tingling Neuro Denies abnormal gait, Denies dizziness, Denies syncope, Denies numbness, Denies tingling and Denies weakness Endo Denies palpitations Physical Exam Vital Signs: Last Vital Signs Pulse 66 06/22/25 10:15 BP 120/62 06/22/25 10:15 BMI result Body Mass Index 28.2 Const General: comfortable and no acute distress Orientation/consciousness: patient oriented x3 HEENT Other: Unremarkable Head: Yes normal to inspection Neck Neck: Yes normal visual inspection Chest Chest palpation & inspection: normal inspection of the chest Resp Auscultation: clear to auscultation bilaterally Cardio Palpation: normal PMI Heart sounds: S1 normal heart sound present, S2 normal heart sound present, no gallops, no murmurs and no rubs GI Palpation (GI): Soft to palpation Back/Spine/Pelvis Other: unremarkable Skin General skin exam: no rashes or lesions noted Neuro General: patient oriented x3 Extrem General: Yes normal to inspection Psych Mental Status: mental status grossly normal Office Procedures EKG Details: EKG with underlying sinus rhythm at 66/Min; rightward axis; nonspecific intraventricular conduction defect; [place] [id number], Complete Assessment & Plan Assessment & Plan (1) Atrial flutter: Code(s): I48.92 - Unspecified atrial flutter Category: Medical Plan: Status post ablation. Off amiodarone. Remains on beta-blockers. Continue anticoagulation. (2) Cardiomyopathy: Code(s): I42.9 - Cardiomyopathy, unspecified Category: Medical Plan: Echocardiogram from December, LVEF 10-15%. Repeat echocardiogram from this February, LVEF 26%. In another study from April at [facility], LVEF 15 20%. In the cardiac MRI, LVEF 28%. Subendocardial infarct in the basal to mid lateral wall. 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 She is on bisoprolol, Entresto, spironolactone, Jardiance. Continue. No overt heart failure symptoms or signs. EP to evaluate for ICD- ? Bi V ICD (3) Left bundle branch block: Code(s): I44.7 - Left bundle-branch block, unspecified Category: Medical Plan: Plan as above. (4) Atherosclerotic cardiovascular disease: Code(s): I25.10 - Atherosclerotic heart disease of [place] coronary artery without angina pectoris Category: Medical Plan: Cardiac catheterization with diffuse multivessel disease. Medically treated. Continue statins. LDL from [facility] 42 mg/dL. Plan Discussion Notes I discussed with the patient the potential need for an implantable cardioverter-defibrillator (ICD) due to her low ejection fraction. We reviewed her current medication regimen and agreed to continue without changes. I recommended a follow-up echocardiogram to monitor her heart function and advised her to resume cardiac rehabilitation after her vacation. Patient was informed and verbally consented to the use of an ambient scribe for clinic note documentation during this visit. Orders: Orders CA echo transthoracic complete Today I42.9 - Cardiomyopathy, unspecified Patient Instructions: - Continue taking your medications as prescribed. - Plan for a follow-up echocardiogram to check heart function. - Follow up with electro-fish drier. Coding Level of Care Code Est Pt Level 4 (15335) Complex EM visit Add On G2211 Diagnoses Atrial flutter I48.92 Cardiomyopathy I42.9 Left bundle branch block I44.7 Atherosclerotic cardiovascular disease I25.10 CPT Codes EKG - CPT: 77167-[id number], Complete ([id number])
--- OUTSIDE RECORDS SUMMARY | 2025-06-22 11:02 | XMS_ITS | Clinical Summary ---
Author Organization [facility] [employer] [facility] Address [address] [place] [address] Phone Care Team Providers Care Ordnance Engineering Technician Name Role Phone Rema Fong MD Primary Care Provid er Social History Tobacco Use Types Packs/Day Years [...] 1999 Zoster Vaccines (1 of 2) 1999 Falls Risk Assessment 12/20/2023 Hepatitis C Screening 12/20/2023 Medicare Annual Wellness Visit 12/20/2023 Osteoporosis Screening (Bone Density Screening) 12/20/2023 Social Influencers of Health Screening 12/20/2023 RSV Immunization Adult Patie nts (1 - 1-dose 75+ series) 2024 COVID-19 Vaccine ( - 2023-2 5 season) 2024 Depression Screening 11/25/2024 Influenza Vaccine (#1) 2025 HIB Vaccines Aged Out No longer [...] complete this topic Insurance MEDICARE Care Teams Ordnance Engineering Technician Relationship Specialty Start Date End Date Rema Fong MD [address] [place] [address] [address] [place] [id number] PCP - General Endocrinology 02/02/25
== END 2025-06-22 10:35 | disposition home or self-care (01) ==
LOC: HO.HCS 10:12
PROVIDERS: PCP Internal Medicine Endocrinology, Diabetes & Metabolism; Visit Provider Internal Medicine
DX: I48.92 Unspecified atrial flutter (principal); I42.9 Cardiomyopathy, unspecified; I44.7 Left bundle-branch block, unspecified; I25.10 Atherosclerotic heart disease of native coronary artery without angina pectoris
CPT/HCPCS: 93010; 99214; G2211

== ENCOUNTER → 2025-06-22 10:12 | Outpatient (BNVA) | payer MEDICARE, SELFPAY | PROVIDERS: PCP Internal Medicine Endocrinology, Diabetes & Metabolism; Visit Provider Internal Medicine | DX: I25.10 Atherosclerotic heart disease of native coronary artery without angina pectoris (principal); I48.92 Unspecified atrial flutter; I42.9 Cardiomyopathy, unspecified; I44.7 Left bundle-branch block, unspecified; R94.31 Abnormal electrocardiogram [ECG] [EKG]; I45.4 Nonspecific intraventricular block | CPT/HCPCS: 93005; 99212 ==

== ENCOUNTER → 2025-07-28 08:00 | Outpatient (BNV) | payer MEDICARE, SELFPAY | PROVIDERS: Visit Provider Internal Medicine Cardiovascular Disease | DX: I35.0 Nonrheumatic aortic (valve) stenosis (principal); I51.7 Cardiomegaly; I34.81 Nonrheumatic mitral (valve) annulus calcification; I44.7 Left bundle-branch block, unspecified | CPT/HCPCS: 93306 ==

== ENCOUNTER → 2025-07-28 08:01 | Outpatient (REF) | payer MEDICARE, SELFPAY ==
--- NOTE | 2025-07-28 08:00 | CA_ITS ---
Transthoracic Echocardiogram Patient (Last, First, Middle): Flor Guzman, Gender: F Date of : 1950 Age: 75 Procedure Date: 07/28/2025 Procedure Type: Transthoracic Echocardiogram Location: OP Height: 157.48 cm Weight: 69.85 kg BSA: 1.71 m2 Heart Rate: bpm BP: 116 / 60 mmHg Market Intelligence Consultant: Referring MD: Daniel Tinoco MD Director Inbound Sales: Sukhi Lamar MD Symptoms: I42.9 - Cardiomyopathy, unspecified Study Quality: Adequate on Apical views ECG Rhythm: Sinus Conclusions: - 1. Severe LV systolic dysfunction with LVEF of 20-25% with restrictive filling pattern 2. Moderately dilated left atrium 3. Calcific aortic valve changes noted with at least mild aortic stenosis 4. Severe mitral annular calcification with mild mitral regurgitation 5. Normal measured RV systolic pressure 6. No gross pericardial effusion Findings Left Ventricle Normal left ventricular cavity size. There is normal left ventricular wall thickness. The left ventricular systolic function is severely decreased. The visually estimated ejection fraction is between 20-25%. There is severe global hypokinesis. There is paradoxical septal motion consistent with a left bundle branch block. Spectral Doppler is indicative of a restrictive filling pattern. Right Ventricle Normal right ventricular cavity size. There is borderline right ventricular systolic function. Atria The left atrium is moderately dilated. There is no evidence of interatrial shunt. The right atrium is normal in size. Aortic Valve The aortic valve was not well visualized. There is mild calcification of the aortic valve. There is mild aortic valve stenosis. There is no aortic valve regurgitation. Mitral Valve The mitral valve was not well visualized. There is moderate anterior and severe posterior mitral leaflet thickening. The posterior mitral leaflet is immobile. There is severe posterior mitral annular calcification. There is severe mitral annular calcification. There is mild mitral valve regurgitation. There is no mitral valve stenosis. Pulmonic Valve The pulmonic valve was not well visualized. Tricuspid Valve Likely normal tricuspid valve structure and function. There is trace tricuspid valve regurgitation. The right ventricular systolic pressure is normal. The right ventricular systolic pressure is 13 mmHg. Normal right atrial pressure. There is no evidence of pulmonary hypertension. Great Vessels All visible segments of the aorta are normal in size. The pulmonary artery was not well visualized. There is no dilatation of the ascending aorta measuring 3.30 cm. Venous The inferior vena cava is normal in size and collapses greater than 50% with inspiration. Pericardium/Pleural There is no evidence of pericardial effusion. Prior Study Comparison No significant change compared to prior study dated: 02/26/2025. Measurements 2D Linear Measurements IVSd: 1.08 0.6-0.9/0.6-1.0 cm LVIDd: 4.65 3.9-5.3/4.2-5.9 cm LVIDd Index: 2.72 2.4-3.2/2.2-3.1 cm/m2 LVIDs: 3.82 2.0-3.6 cm LVPWd: 1.09 0.7-1.1 cm Ao Root: 2.80 2.1-3.5 cm LA Diam: 4.00 2.7-3.8/3.0-4.0 cm LAIDs Index: 2.34 1.5-2.3 cm/m2 LV Mass: 225.34 67-162/88-224 g LV Mass Index: 131.78 43-95/49-115 g/m2 LVOT Diam: 2.00 3.0+(-)1.3 cm 2D Systolic Function EF 4C: 22.70 >55% EF 2C: 20.70 >55% EF BiP: 23.40 >55% Mitral Valve MV VTI: 0.52 MV Pk Alfred: 1.19 MV Mn Alfred: 0.63 MV Pk Grad: 6.00 MV Mn Grad: 2.00 MV Pk E: 1.23 MV PK A: 0.90 MV Decel Time: 278.00 E/A: 1.40 E'Lateral: 8.16 E'Medial: 3.92 E/E' Med: 31.40 E/E' Lat: 15.10 PHT: 81.00 MVA PHT: 2.72 MVA Continuity: 1.01 Decel [place]: 4.41 Aortic Valve AoV Pk Alfred: 2.15 AoV Mn Alfred: 1.35 AoV VTI: 0.51 AoV Pk Grad: 18.00 Aov Mn Grad: 9.00 RHONDA Cont.VTI: 1.04 LVOT LVOT Pk Alfred: 0.75 LVOT Mn Alfred: 0.48 LVOT VTI: 0.17 LVOT Pk Grad: 2.00 LVOT Mn Grad: 1.00 LVOT Diam: 2.00 LVOT Area: 3.14 Diastolic Function MV Pk E: 1.23 MV Pk A: 0.90 E/A: 1.40 E'Medial: 3.92 E/E' Med: 31.40 E' Laterial: 8.16 E/E' Lat: 15.10 Right Ventricle TAPSE (mm): 17.00 TVS' Alfred: 7.00 Tricuspid Valve TR Pk Alfred: 1.58 TR Pk Grad: 10.00 RA Press: 3.00 RVSP: 13.00 Great Vessels Aorta Ao Root-2D: 2.80 2.0-3.7 cm Ao Asc: 3.30 2.1-3.4 cm Pulmonary Valve PV Pk Alfred: 0.96 Peak PV Grad: 4.00 Updated in Other Vendor System with Status of Final Sukhi Lamar MD electronically signed on 07/28/2025 2:18:14 PM with status of Final
--- OUTSIDE RECORDS SUMMARY | 2025-07-28 08:10 | XMS_ITS | Clinical Summary ---
Author Organization [facility] Address [address] [place] [address] Phone Care Team Providers Care Male Infertility Specialist Name Role Phone Rema Fong MD Primary [...] nts (1 - 1-dose 75+ series) 2024 Depression Screening 11/25/2024 COVID-19 Vaccine ( - 2023-2 5 season) 2025 Influenza Vaccine (#1) 2025 HIB Vaccines Aged [...] complete this topic Insurance MEDICARE Care Teams Male Infertility Specialist Relationship Specialty Start Date End Date Rema Fong MD PCP - General Endocrinology 02/02/25
== END ==
LOC: HO.CARD 08:01
PROVIDERS: Visit Provider Internal Medicine
DX: I42.9 Cardiomyopathy, unspecified (principal)
CPT/HCPCS: 93306

== ENCOUNTER 2025-08-30 10:00 | Outpatient (RCR) | payer MEDICARE, SELFPAY ==
[2025-03-26 10:08] LABS: Glucose, Whole Blood 218 mg/dL (60-115)
[2025-03-26 11:12] LABS: Glucose, Whole Blood 166 mg/dL (60-115)
[2025-04-05 11:23] LABS: Glucose, Whole Blood 138 mg/dL (60-115)
[2025-04-07 11:18] LABS: Glucose, Whole Blood 211 mg/dL (60-115)
[2025-04-14 11:16] LABS: Glucose, Whole Blood 169 mg/dL (60-115)
[2025-04-16 11:35] LABS: Glucose, Whole Blood 167 mg/dL (60-115)
[2025-04-16 11:35] LABS: Glucose, Whole Blood 150 mg/dL (60-115)
[2025-04-21 09:59] LABS: Glucose, Whole Blood 178 mg/dL (60-115)
[2025-04-21 11:20] LABS: Glucose, Whole Blood 137 mg/dL (60-115)
[2025-04-26 10:04] LABS: Glucose, Whole Blood 153 mg/dL (60-115)
[2025-04-26 11:17] LABS: Glucose, Whole Blood 155 mg/dL (60-115)
== END 2025-09-01 10:05 | disposition home or self-care (01) ==
LOC: HO.CR 10:00
PROVIDERS: PCP Internal Medicine Endocrinology, Diabetes & Metabolism; Visit Provider Nurse Practitioner Family
DX: I21.4 Non-ST elevation (NSTEMI) myocardial infarction (principal); I42.9 Cardiomyopathy, unspecified; Z98.890 Other specified postprocedural states
CPT/HCPCS: 82947; 93798

== ENCOUNTER 2025-09-27 09:52 | Outpatient (AMB) | payer MEDICARE, SELFPAY ==
[2025-09-27 10:07] VITALS: BP 120/60; PULSE 69; BMI 28.6
--- NOTE | 2025-09-27 10:07 | A.OFFVIS_ITS ---
Vital Signs 09/27/25 10:07 Height 5 ft 2 in Weight 156 lb 8.451 oz BMI 28.6 BP 120/60 Blood Pressure Location Lt brachial Position Sitting Pulse 69 Pulse Source Pulse Oximeter Intake Visit Reasons: 3 mth s/p echo Allergies No Known Allergies Allergy (Verified 02/09/25 13:50) Medication List - Last Reconciled 09/27/25 by Daniel Tinoco MD apixaban (Eliquis) 5 mg PO BID aspirin 81 mg PO DAILY atorvastatin 80 mg PO BEDTIME bisoprolol fumarate 5 mg DAILY empagliflozin (Jardiance) 10 mg PO DAILY glipizide ER 20 mg PO QAM Held on 01/19/25. Instructions: Resume on 01/20/25. Hold until evaluated at [facility] metformin ER 1,000 mg PO QPM Held on 01/19/25. Instructions: Resume on 01/20/25. Hold until evaluated at [facility] paroxetine HCl 20 mg PO DAILY sacubitril-valsartan 24-26 mg (Entresto) 1 tab PO BID 30 days spironolactone 25 mg PO DAILY HPI Comments Details: Flor returns for follow-up regarding various cardiac issues. Essentially, she has got atrial flutter, coronary disease, cardiomyopathy. Recently underwent ablation of atrial flutter/fibrillation. Since last seen, no new complaints. Otherwise, getting along fine. [facility] Medical History (Updated 06/22/25 @ 12:23 by Daniel Tinoco MD) Atrial flutter Breast cancer Hyperlipidemia, unspecified Essential hypertension Diabetes mellitus Surgical History Hx of cardiac cath Hx of cholecystectomy H/O mastectomy Family History Father Heart valve replaced Social History Household Members: Spouse Housing: House Do you presently have visiting nurse or other home services: No Patient Tobacco Use Status: Never used Tobacco service: No Review of Systems Const Denies weakness ENT Denies dizziness Card Denies chest pain, Denies chest pain with activity, Denies syncope, Denies rapid heart rate, Denies pedal edema, Denies edema, Denies leg edema, Denies lightheadedness, Denies palpitations, Denies dyspnea, Denies dyspnea on exertion and Denies orthopnea Resp Denies cough, Denies dyspnea and Denies dyspnea on exertion GI Denies hematochezia and Denies change in stool character Musc Denies abnormal gait, Denies muscle cramps, Denies muscle weakness, Denies numbness, Denies radiating pain into limb and Denies tingling Neuro Denies abnormal gait, Denies dizziness, Denies syncope, Denies numbness, Denies tingling and Denies weakness Endo Denies palpitations Physical Exam Vital Signs: Last Vital Signs Pulse 69 09/27/25 10:07 BP 120/60 09/27/25 10:07 BMI result Body Mass Index 28.6 Const General: comfortable and no acute distress Orientation/consciousness: patient oriented x3 HEENT Other: Unremarkable Head: Yes normal to inspection Neck Neck: Yes normal visual inspection Chest Chest palpation & inspection: normal inspection of the chest Resp Auscultation: clear to auscultation bilaterally Cardio Palpation: normal PMI Heart sounds: S1 normal heart sound present, S2 normal heart sound present, no gallops, no murmurs and no rubs GI Palpation (GI): Soft to palpation Back/Spine/Pelvis Other: unremarkable Skin General skin exam: no rashes or lesions noted Neuro General: patient oriented x3 Extrem General: Yes normal to inspection Psych Mental Status: mental status grossly normal Assessment & Plan Assessment & Plan (1) Atrial flutter: Code(s): I48.92 - Unspecified atrial flutter Category: Medical Plan: Status post ablation. Off amiodarone. On bisoprolol/Eliquis. (2) Cardiomyopathy: Code(s): I42.9 - Cardiomyopathy, unspecified Category: Medical Plan: Echocardiogram from December, LVEF 10-15%. Repeat echocardiogram from this February, LVEF 26%. In another study from April at [facility], LVEF 15-20%. Most recently, LVEF 20-25%. In the cardiac MRI, LVEF 28%. Subendocardial infarct in the basal to mid lateral wall. 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 She is on Bisoprolol, Entresto, Spironolactone, Jardiance. Continue. No overt heart failure symptoms or signs. EP to evaluate for ICD- ? Bi V ICD. She states that she is awaiting her appointment this month. (3) Left bundle branch block: Code(s): I44.7 - Left bundle-branch block, unspecified Category: Medical Plan: Plan as above. (4) Atherosclerotic cardiovascular disease: Code(s): I25.10 - Atherosclerotic heart disease of [place] coronary artery without angina pectoris Category: Medical Plan: Cardiac catheterization with diffuse multivessel disease. Medically treated. Continue statins. LDL from [place] 42 mg/dL. Plan Discussion Notes I discussed with the patient the current status of her heart failure with reduced ejection fraction and the potential benefits of an implantable cardioverter-defibrillator (ICD). We reviewed the importance of her upcoming appointment with the manager paid to further evaluate the need for an ICD. Additionally, we talked about the management of her anticoagulation therapy with [facility] in relation to her planned dental procedures. Patient was informed and verbally consented to the use of an ambient scribe for clinic note documentation during this visit. Patient Instructions: - Keep the appointment with the manager paid this month. - Monitor and report any new cardiac symptoms. Coding Level of Care Code Est Pt Level 4 (71013) Complex EM visit Add On G2211 Diagnoses Atrial flutter I48.92 Cardiomyopathy I42.9 Left bundle branch block I44.7 Atherosclerotic cardiovascular disease I25.10
== END 2025-09-27 10:20 | disposition home or self-care (01) ==
LOC: HO.HCS 09:52
PROVIDERS: PCP Internal Medicine Endocrinology, Diabetes & Metabolism; Visit Provider Internal Medicine
DX: I48.92 Unspecified atrial flutter (principal); I42.9 Cardiomyopathy, unspecified; I44.7 Left bundle-branch block, unspecified; I25.10 Atherosclerotic heart disease of native coronary artery without angina pectoris
CPT/HCPCS: 99214; G2211

== ENCOUNTER → 2025-09-27 09:52 | Outpatient (BNVA) | payer MEDICARE, SELFPAY | PROVIDERS: PCP Internal Medicine Endocrinology, Diabetes & Metabolism; Visit Provider Internal Medicine | DX: I48.92 Unspecified atrial flutter (principal); I42.9 Cardiomyopathy, unspecified; I44.7 Left bundle-branch block, unspecified; I25.10 Atherosclerotic heart disease of native coronary artery without angina pectoris; Z79.01 Long term (current) use of anticoagulants; E78.5 Hyperlipidemia, unspecified; E11.9 Type 2 diabetes mellitus without complications; Z79.84 Long term (current) use of oral hypoglycemic drugs | CPT/HCPCS: 99212 ==